=== PATIENT | female | born 1995 | race Caucasian/White ===

== ENCOUNTER 2018-05-31 22:54 | Emergency (ER) | payer OTHER, SELFPAY ==
--- NOTE | 2018-06-01 00:55 | EDPHYS ---
Physician Documentation [facility] Name: Natali Velasco Age: 23 yrs Sex: Female : 1995 Arrival Date: 05/31/2018 Time: 22:58 Bed 19 Private MD: ED Physician Salo Hagan HPI: 06/01 00:40 This 23 yrs old Female presents to ER via Ambulatory with complaints of Flu cp Symptoms. 00:40 The patient or guardian reports cough, that is intermittent, flu symptoms, arthralgias, cp low-grade fever. 00:40 Onset: The symptoms/episode began/occurred this morning. Severity of symptoms: in the cp emergency department the symptoms are unchanged. Associated signs and symptoms: Pertinent positives: sore throat, headache, body aches, Pertinent negatives: diarrhea, vomiting. 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 Patient has never been vaccinated. - Social history:: Smoking status: Patient uses tobacco products, smokes one-half pack cigarettes per day. - Ebola Screening: : No symptoms or risks identified at this time. ROS: 06/01 00:45 Constitutional: Positive for body aches, Negative for fever, poor PO intake. cp 00:45 Eyes: Negative for injury, pain, redness, and discharge. cp 00:45 ENT: Positive for sore throat, Negative for drainage from ear(s), ear pain, difficulty swallowing, difficulty handling secretions. 00:45 Neck: Positive for tenderness. 00:45 Respiratory: Positive for cough, Negative for shortness of breath, wheezing. 00:45 Abdomen/GI: Negative for abdominal pain, nausea, vomiting, and diarrhea. 00:45 Back: Positive for pain at rest, Negative for injury or acute deformity, decreased range of motion. 00:45 : Negative for urinary symptoms. 00:45 Skin: Negative for cellulitis, rash. 00:45 Neuro: Positive for headache, Negative for altered mental status, weakness. 00:45 All other systems are negative. Exam: 00:48 Constitutional: The patient appears in no acute distress, alert, awake, non-toxic, well cp developed, well nourished. 00:48 Head/Face: Normocephalic, atraumatic. cp 00:48 Eyes: Periorbital structures: appear normal, Conjunctiva: normal, no exudate, no injection, Sclera: no appreciated abnormality, Lids and lashes: appear normal, bilaterally. 00:48 ENT: External ear(s): are unremarkable, Ear canal(s): are normal, clear, TM's: bulging, is not appreciated, bilaterally, dullness, bilaterally, erythema, is not appreciated, bilaterally, Nose: is normal, Mouth: Lips: moist, Oral mucosa: moist, Posterior pharynx: is normal, airway is patent, no erythema, no exudate, Voice: is normal. 00:48 Neck: ROM/movement: is normal, is supple, no range of motions limitations, no meningismus, no nuchal rigidity, Lymph nodes: no appreciated lymphadenopathy. 00:48 Chest/axilla: Inspection: normal, Palpation: is normal, no crepitus, no tenderness. 00:48 Cardiovascular: Rate: tachycardic, Rhythm: regular. 00:48 Respiratory: the patient does not display signs of respiratory distress, Respirations: normal, no use of accessory muscles, no retractions, no splinting, no tachypnea, Breath sounds: are clear throughout, no decreased breath sounds, no stridor, no wheezing. 00:48 Abdomen/GI: Inspection: abdomen appears normal, Palpation: abdomen is soft and non-tender, in all quadrants, rebound tenderness, is not appreciated, voluntary guarding, is not appreciated, involuntary guarding, is not appreciated. 00:48 Back: pain, that is mild, ROM is normal. 00:48 Skin: cellulitis, is not appreciated, no rash present. 00:48 Neuro: Orientation: to person, place \T\ time. Mentation: is normal, Cerebellar function: is grossly normal, Motor: moves all fours, strength is normal, Sensation: is normal. Vital Signs: 05/31 23:10 BP 104 / 79; Pulse 111; Resp 16; Temp 100.5(O); Pulse Ox 98% on R/A; Weight 79.38 kg; lp1 Height 5 ft. 3 in. (160.02 cm); 06/01 01:20 BP 113 / 63; Pulse 105; Resp 18; Temp 97.9; Pulse Ox 98% on R/A; rr5 05/31 23:10 Body Mass Index 31.00 (79.38 kg, 160.02 cm) lp1 MDM: 05/31 23:42 Patient medically screened. cp 06/01 00:00 Differential Diagnosis: Bronchitis Influenza Upper Respiratory Infection Otitis Media cp Pneumonia Other strep throat. 00:51 Data reviewed: vital signs, nurses notes, lab test result(s). cp 00:51 Counseling: I had a detailed discussion with the patient and/or guardian regarding: the cp historical points, exam findings, and any diagnostic results supporting the discharge/admit diagnosis, lab results, to return to the emergency department if symptoms worsen or persist or if there are any questions or concerns that arise at home. 00:51 ED course: Discussed negative tests for influenza and strep, but will start patient on cp tamiflu due to symptoms and discharge to home for continued monitoring. 05/31 23:12 Order name: Flu lp1 05/31 23:12 Order name: Strep lp1 06/01 00:14 Order name: Throat Culture EDVT 06/01 00:36 Order name: Urine Dipstick-Ancillary (obtain specimen); Complete Time: 01:16 cp 06/01 00:36 Order name: Urine Test (obtain specimen); Complete Time: 01:16 cp Administered Medications: 01:00 Drug: Tylenol 1000 mg Route: PO; rr5 01:24 Follow up: Response: Medication administered at discharge. rr5 Disposition: 01:26 Co-signature as Attending Physician, Salo Hagan MD. pkl Disposition: 06/01/18 00:53 Discharged to Home. Impression: Influenza like illness. - Condition is Stable. - Discharge Instructions: Influenza, Adult. - Prescriptions for Ibuprofen 800 mg Oral Tablet - take 1 tablet by ORAL route every 8 hours As needed take with food; 30 tablet. Tamiflu 75 mg Oral Capsule - take 1 tablet by ORAL route every 12 hours for 5 days; 10 tablet. - Medication Reconciliation Form, Thank You Letter, Antibiotic Education, Prescription Opioid Use form. - Follow up: Private Physician; When: 1 - 2 days; Reason: Recheck today's complaints. - Problem is new. - Symptoms are unchanged. Signatures: Dispatcher [employer] EDVT Salo Hagan MD MD pkBetsy Oliveira RN RN lp1 Hardeep Singh PA PA cp Roque, Raymond, RN RN rr5 Corrections: (The following items were deleted from the chart) 01:14 00:36 UA MICROSCOPIC+U.LAB.BRZ ordered. EDVT EDVT 01:25 00:53 06/01/2018 00:53 Discharged to Home. Impression: Influenza like illness. rr5 Condition is Stable. Forms are Medication Reconciliation Form, Thank You Letter, Antibiotic Education, Prescription Opioid Use. Follow up: Private Physician; When: 1 - 2 days; Reason: Recheck today's complaints. Problem is new. Symptoms are unchanged. cp 21:25 00:00 Differential diagnosis: viral Infection, bacterial infection, URI, bronchitis, cp pneumonia UTI, meningitis, influenza cp
--- NOTE | 2018-06-01 00:55 | ER ---
Nurse's Notes [facility] Name: Natali Velasco Age: 23 yrs Sex: Female : 1995 Arrival Date: 05/31/2018 Time: 22:58 Bed 19 Private MD: Diagnosis: Influenza like illness Presentation: 05/31 23:11 Presenting complaint: Patient states: Woke up today running fever at home, cough, sore lp1 throat, generalized pain and aches to body; Took 3 tabs of 500mg Tylenol about 2 hours ago. Transition of care: patient was not received from another setting of care. Onset of symptoms was May 31, 2018. Risk Assessment: Do you want to hurt yourself or someone else? Patient reports no desire to harm self or others. Initial Sepsis Screen: Does the patient meet any 2 criteria? No. Patient's initial sepsis screen is negative. Does the patient have a suspected source of infection? No. Patient's initial sepsis screen is negative. Care prior to arrival: None. 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 Patient has never been vaccinated. - Social history:: Smoking status: Patient uses tobacco products, smokes one-half pack cigarettes per day. - Ebola Screening: : No symptoms or risks identified at this time. Screenin:11 Abuse screen: Denies threats or abuse. Denies injuries from another. Nutritional lp1 screening: No deficits noted. Tuberculosis screening: No symptoms or risk factors identified. Fall Risk None identified. Assessment: 23:15 General: Appears in no apparent distress. uncomfortable, Behavior is calm, cooperative, rr5 appropriate for age. Pain: Complains of pain in throat Pain does not radiate. Quality of pain is described as aching, Pain began gradually, Is intermittent. Neuro: Level of Consciousness is awake, alert, obeys commands, Oriented to person, place, time, situation. 23:15 Cardiovascular: Capillary refill < 3 seconds Patient's skin is warm and dry. rr5 Respiratory: Airway is patent Respiratory effort is even, unlabored, Respiratory pattern is regular, symmetrical. GI: No signs and/or symptoms were reported involving the gastrointestinal system. : No signs and/or symptoms were reported regarding the genitourinary system. EENT: Reports throat pain. Derm: Skin is intact, Skin temperature is warm. Musculoskeletal: Capillary refill < 3 seconds, Range of motion: intact in all extremities, Reports pain in body. 06/01 00:30 Reassessment: Patient appears in no apparent distress at this time. Patient and/or rr5 family updated on plan of care and expected duration. Pain level reassessed. awaiting for report. 01:24 Reassessment: Patient appears in no apparent distress at this time. Patient and/or rr5 family updated on plan of care and expected duration. Pain level reassessed. discharge instruction given and explained without complaints made. Patient states feeling better. Patient states symptoms have improved. Vital Signs: 05/31 23:10 BP 104 / 79; Pulse 111; Resp 16; Temp 100.5(O); Pulse Ox 98% on R/A; Weight 79.38 kg; lp1 Height 5 ft. 3 in. (160.02 cm); 06/01 01:20 BP 113 / 63; Pulse 105; Resp 18; Temp 97.9; Pulse Ox 98% on R/A; rr5 05/31 23:10 Body Mass Index 31.00 (79.38 kg, 160.02 cm) lp1 ED Course: 05/31 22:58 Patient arrived in ED. mr 23:10 Arm band placed on right wrist. lp1 23:11 Triage completed. lp1 23:15 Patient has correct armband on for positive identification. Bed in low position. Call rr5 light in reach. Side rails up X 1. Pulse ox on. NIBP on. 23:15 Flu and/or RSV swab sent to lab. Strep swab sent to lab. lp1 23:42 Hardeep Singh PA is PHCP. cp 23:42 Salo Hagan MD is Attending Physician. cp 06/01 00:35 Mateo Sweeney RN is Primary Nurse. rr5 01:24 No provider procedures requiring assistance completed. Patient did not have IV access rr5 during this emergency room visit. Administered Medications: 01:00 Drug: Tylenol 1000 mg Route: PO; rr5 01:24 Follow up: Response: Medication administered at discharge. rr5 Outcome: 00:53 Discharge ordered by . cp 01:24 Discharged to home ambulatory, with family. rr5 01:24 Condition: stable 01:24 Discharge instructions given to patient, family, Instructed on discharge instructions, follow up and referral plans. medication usage, Demonstrated understanding of instructions, follow-up care, medications, Prescriptions given X 2. 01:25 Patient left the ED. rr5 Signatures: Kinga Marquez mr RaiBetsy RN RN lp1 Hardeep Singh PA PA Mateo Cruz RN RN rr5 Corrections: (The following items were deleted from the chart) 05/31 23:12 23:11 Presenting complaint: Patient states: Woke up today running fever at home, cough, lp1 sore throat, generalized pain and aches to body lp1
[2018-06-01] MEDS ORDERED: ACETAMINOPHEN 500 MG TAB ONE (01:20)
== END 2018-06-01 01:25 | disposition home or self-care (01) ==
LOC: ER 22:54
DX: J11.1 Influenza due to unidentified influenza virus with other respiratory manifestations (principal); F17.210 Nicotine dependence, cigarettes, uncomplicated
CPT/HCPCS: 87070; 87081; 87804; 99284

== ENCOUNTER 2019-11-19 22:22 | Emergency (ER) | payer SELFPAY ==
--- OUTSIDE RECORDS SUMMARY | 2019-11-19 22:32 | XMS REPORT | Continuity of Care Document ---
:1995 Author Organization [facility] t Address [address] [place] [address] Care Team Providers Name Role Phone Ernestina Patiño Attending Clinician Unavailable Francia MORATAYA Attending Clinician Eva Attending Clinician Unavailable Doctor Unassigned, Name Attending Clinician Unavailable Problems This patient has no known problems. Allergies, Adverse Reactions, Alerts This patient has no known allergies or adverse reactions. Medications This patient has no known medications. Procedures This patient has no known procedures. 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 Busser Kaylyn, [facility] [id number] 12:59:15 13:59:15 Visit Ramonita Colin [id number] [place] [id number] [facility] [phone] [address] 2019-01-11 2019-01-11 Routine Francia [facility] [id number] 09:22:18 09:47:30 Chester Colin [id number] Visit Faiza [id number] Zoë [phone] [address] 2019-01-08 2019-01-08 Telephone Francia KYVICK [id number] 00:00:00 00:00:00 Chester Colin [id number] [place] [id number] [facility] [phone] [facility] [address] 2018-12-28 2018-12-28 Office LAI Velasquez [id number] 12:11:23 12:38:16 Visit Lashaun [facility] [id number] [facility] [id number] MATERNAL [phone] & CHILD [address] [place] [address] 2018-12-18 2018-12-18 Patient Doctor ANTHONY [id number] 00:00:00 00:00:00 Secure Msg Unassigned, PATO [id number] [place] [facility] [phone] [id number] Results This patient has no known results.
[2019-11-19 23:46] LABS: Urine Blood NEGATIVE (NEG); Urine Glucose NEGATIVE (NEG); Urine Protein NEGATIVE (NEG); Urine Specific Gravity 1.025 (1.005-1.030); Urine pH 7.5 (5.0-7.0)
[2019-11-19] MEDS ORDERED: methocarbamoL 500 MG TAB ONE (23:57)
[2019-11-19] MEDS ORDERED: KETOROLAC 30 MG/ML INJ ONE (23:58)
[2019-11-20 00:01] LABS: Urine Bacteria 20-50 /HPF (<20); Urine Culture Reflex Order REFLEXED; Urine RBC NONE SEEN /HPF (NONE SEEN)
--- NOTE | 2019-11-20 00:10 | EDPHYS ---
Physician Documentation [facility] Name: Natali Velasco Age: 24 yrs Sex: Female : 1995 Arrival Date: 11/19/2019 Time: 22:38 Bed X-Ray Private MD: ED Physician Hector Graham HPI: 11/18 23:36 This 24 yrs old Female presents to ER via Ambulatory with complaints of Lower jr8 Back Pain. 23:36 The patient presents with pain that is acute, with no known mechanism of injury. The jr8 symptoms are located in the low back. The pain does not radiate. The problem was sustained from unknown cause. Onset: The symptoms/episode began/occurred acutely, today. Modifying factors: The patient symptoms are alleviated by nothing, the patient symptoms are aggravated by any movement. Associated signs and symptoms: The patient has no apparent associated signs or symptoms. Severity of symptoms: At their worst the symptoms were moderate, in the emergency department the symptoms are unchanged. The patient has experienced a previous episode. The patient has not recently seen a physician. Patient stated that she has had mild back pain in past. Today has been severe. Denies trauma or heavy lifting. Denies any other symptoms . [employer]: 11/19 00:49 LMP N/A - control method ao Historical: - Allergies: 11/18 22:53 No Known Allergies; sg - PMHx: 22:53 NF-1; sg - PSHx: 22:53 None; sg - Immunization history:: Adult Immunizations up to date. - Social history:: Smoking status: Patient reports the use of cigarette tobacco products. ROS: 23:36 Eyes: Negative for injury, pain, redness, and discharge, ENT: Negative for injury, jr8 pain, and discharge, Neck: Negative for injury, pain, and swelling, Cardiovascular: Negative for chest pain, palpitations, and edema, Respiratory: Negative for shortness of breath, cough, wheezing, and pleuritic chest pain, Abdomen/GI: Negative for abdominal pain, nausea, vomiting, diarrhea, and constipation, MS/Extremity: Negative for injury and deformity, Skin: Negative for injury, rash, and discoloration, Neuro: Negative for headache, weakness, numbness, tingling, and seizure. 23:36 Back: Positive for decreased range of motion, pain at rest, pain with movement, Negative for radiated pain. Exam: 23:36 Eyes: Pupils equal round and reactive to light, extra-ocular motions intact. Lids and jr8 lashes normal. Conjunctiva and sclera are non-icteric and not injected. Cornea within normal limits. Periorbital areas with no swelling, redness, or edema. ENT: Nares patent. No nasal discharge, no septal abnormalities noted. Tympanic membranes are normal and external auditory canals are clear. Oropharynx with no redness, swelling, or masses, exudates, or evidence of obstruction, uvula midline. Mucous membranes moist. Neck: Trachea midline, no thyromegaly or masses palpated, and no cervical lymphadenopathy. Supple, full range of motion without nuchal rigidity, or vertebral point tenderness. No Meningismus. Cardiovascular: Regular rate and rhythm with a normal S1 and S2. No gallops, murmurs, or rubs. Normal PMI, no JVD. No pulse deficits. Respiratory: Lungs have equal breath sounds bilaterally, clear to auscultation and percussion. No rales, rhonchi or wheezes noted. No increased work of breathing, no retractions or nasal flaring. Abdomen/GI: Soft, non-tender, with normal bowel sounds. No distension or tympany. No guarding or rebound. No evidence of tenderness throughout. Skin: Warm, dry with normal turgor. Normal color with no rashes, no lesions, and no evidence of cellulitis. MS/ Extremity: Pulses equal, no cyanosis. Neurovascular intact. Full, normal range of motion. Neuro: Awake and alert, GCS 15, oriented to person, place, time, and situation. Cranial nerves II-XII grossly intact. Motor strength 5/5 in all extremities. Sensory grossly intact. Cerebellar exam normal. Normal gait. 23:36 Back: pain, that is moderate, of the left low back and right low back, ROM is painful, normal spinal alignment noted, CVA tenderness, is absent, muscle spasm, is not present, Straight leg raises: pain bilaterally. Vital Signs: 22:41 BP 132 / 80; Pulse 87; Resp 18; Pulse Ox 100% on R/A; sg 11/19 00:50 BP 135 / 75; Pulse 80; Resp 16; Temp 98.6; Pulse Ox 100% on R/A; Pain 0/10; ao MDM: 06/26 22:52 Patient medically screened. [facility] 23:36 Data reviewed: vital signs, nurses notes, radiologic studies, plain films, and as a jr result, I will discharge patient. Data interpreted: Pulse oximetry: on room air is 100 %. Interpretation: normal. Counseling: I had a detailed discussion with the patient and/or guardian regarding: the historical points, exam findings, and any diagnostic results supporting the discharge/admit diagnosis, radiology results, the need for outpatient follow up, a family practitioner, to return to the emergency department if symptoms worsen or persist or if there are any questions or concerns that arise at home. Response to treatment: the patient's symptoms have markedly improved after treatment. 11/18 22:52 Order name: Urine Microscopic Only; Complete Time: 00:08 [facility] 11/18 23:45 Order name: Urine Dipstick--Ancillary (enter results); Complete Time: 23:48 tt3 11/18 23:18 Order name: XRAY Lumbar Spine (3 Views) [facility] 11/19 00:03 Order name: Urine Culture [facility] 11/18 22:52 Order name: Urine Test (obtain specimen); Complete Time: 23:54 [facility] 11/18 22:52 Order name: Urine Dipstick-Ancillary (obtain specimen); Complete Time: 23:54 [facility] Administered Medications: 11/19 00:22 Drug: TORadol 30 mg Route: IM; Site: right deltoid; ao 00:30 Follow up: Response: No adverse reaction ao 00:22 Drug: Robaxin 750 mg Route: PO; ao 00:22 Follow up: Response: No adverse reaction ao 00:30 Follow up: Response: No adverse reaction ao Disposition: 05:42 Co-signature as Attending Physician, Hector Graham MD. [email or web address] Disposition: 11/20/19 00:10 Discharged to Home. Impression: Low back pain, Urinary tract infection, site not specified. - Condition is Stable. - Discharge Instructions: Back Pain, Adult, Musculoskeletal Pain, Heat Therapy. - Prescriptions for Ibuprofen 800 mg Oral Tablet - take 1 tablet by ORAL route every 12 hours As needed take with food; 20 tablet. Zanaflex 4 mg Oral Tablet - take 1 tablet by ORAL route every 8 hours As needed; 20 tablet. Macrobid 100 mg Oral Capsule - take 1 capsule by ORAL route every 12 hours for 7 days; 14 capsule. - Medication Reconciliation Form, Thank You Letter, Antibiotic Education, Prescription Opioid Use form. - Follow up: Private Physician; When: 2 - 3 days; Reason: Recheck today's complaints, Continuance of care, Re-evaluation by your physician. - Problem is new. - Symptoms have improved. Signatures: Dispatcher [employer] EDMS Thom Stack RN RN Javy David PA PA jr8 Rian Olmedo RN RN ao Holmes, Maurice, MD MD [email or web address] Corrections: (The following items were deleted from the chart) 00:10 00:10 11/20/2019 00:10 Discharged to Home. Impression: Low back pain. Condition is jr8 Stable. Forms are Medication Reconciliation Form, Thank You Letter, Antibiotic Education, Prescription Opioid Use. Follow up: Private Physician; When: 2 - 3 days; Reason: Recheck today's complaints, Continuance of care, Re-evaluation by your physician. Problem is new. Symptoms have improved. jr8 00:50 00:10 11/20/2019 00:10 Discharged to Home. Impression: Low back pain; Urinary tract ao infection, site not specified. Condition is Stable. Forms are Medication Reconciliation Form, Thank You Letter, Antibiotic Education, Prescription Opioid Use. Follow up: Private Physician; When: 2 - 3 days; Reason: Recheck today's complaints, Continuance of care, Re-evaluation by your physician. Problem is new. Symptoms have improved. jr8
--- NOTE | 2019-11-20 00:10 | ER ---
Nurse's Notes [facility] Name: Natali Velasco Age: 24 yrs Sex: Female : 1995 Arrival Date: 11/19/2019 Time: 22:38 Bed X-Ray Private MD: Diagnosis: Low back pain;Urinary tract infection, site not specified Presentation: 11/18 22:41 Acuity: LEELEE 4 sg 22:41 Chief complaint: Patient states: Back pain x1 month, denies urinary symptoms, reports sg having the pain worsening this evening, unsure if maybe moved incorrectly making the pain worsen, states having lower back pain that is relieved with laying side lying position and having a leg laid over the other leg. Coronavirus screen: Proceed with normal triage. Ebola Screen: Patient negative for fever greater than or equal to 101.5 degrees Fahrenheit, and additional compatible Ebola Virus Disease symptoms Patient denies exposure to infectious person. Patient denies travel to an Ebola-affected area in the 21 days before illness onset. No symptoms or risks identified at this time. Initial Sepsis Screen: Does the patient meet any 2 criteria? No. Patient's initial sepsis screen is negative. Does the patient have a suspected source of infection? No. Patient's initial sepsis screen is negative. Risk Assessment: Do you want to hurt yourself or someone else? Patient reports no desire to harm self or others. Onset of symptoms was November 19, 2019. Care prior to arrival: None. 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 - Social history:: Smoking status: Patient reports the use of cigarette tobacco products. Screenin:57 Abuse screen: Denies threats or abuse. Denies injuries from another. Nutritional ao screening: No deficits noted. Tuberculosis screening: No symptoms or risk factors identified. Fall Risk None identified. Assessment: 23:30 General: Appears in no apparent distress. comfortable, Behavior is calm, cooperative, ao appropriate for age. Pain: Complains of pain in right low back and left low back Pain does not radiate. Pain currently is 8 out of 10 on a pain scale. Neuro: Level of Consciousness is awake, alert, obeys commands, Oriented to person, place, time, situation, Appropriate for age Moves all extremities. Full function Speech is normal, Facial symmetry appears normal. Cardiovascular: Capillary refill < 3 seconds Patient's skin is warm and dry. Respiratory: Airway is patent Respiratory effort is even, unlabored, Respiratory pattern is regular, symmetrical. GI: Abdomen is non-distended. : Urine is clear. EENT: No signs and/or symptoms were reported regarding the EENT system. Derm: Skin is intact, Skin is pink, warm \T\ dry. normal, Skin temperature is warm. Musculoskeletal: Circulation, motion, and sensation intact. Range of motion: intact in all extremities. 11/19 00:49 Reassessment: DC instructions given to patient. Paitent agree with POC and to follow up ao with PCP. No questions at this time. Vital Signs: 11/18 22:41 BP 132 / 80; Pulse 87; Resp 18; Pulse Ox 100% on R/A; sg 11/19 00:50 BP 135 / 75; Pulse 80; Resp 16; Temp 98.6; Pulse Ox 100% on R/A; Pain 0/10; ao ED Course: 11/18 22:38 Patient arrived in ED. ds1 22:41 Triage completed. sg 22:41 Arm band placed on. sg 22:52 Javy Duque PA is PHCP. jr8 22:52 Hector Graham MD is Attending Physician. jr8 22:53 Rian Olmedo, JUSTUS is Primary Nurse. ao 23:57 Patient has correct armband on for positive identification. Pulse ox on. NIBP on. ao 11/19 00:09 XRAY Lumbar Spine (3 Views) In Process Unspecified. EDMS 00:48 No provider procedures requiring assistance completed. Patient did not have IV access ao during this emergency room visit. Administered Medications: 00:22 Drug: TORadol 30 mg Route: IM; Site: right deltoid; ao 00:30 Follow up: Response: No adverse reaction ao 00:22 Drug: Robaxin 750 mg Route: PO; ao 00:22 Follow up: Response: No adverse reaction ao 00:30 Follow up: Response: No adverse reaction ao Outcome: 00:10 Discharge ordered by MD. daniels 00:49 Discharged to home ambulatory. ao 00:49 Condition: stable 00:49 Discharge instructions given to patient, Instructed on discharge instructions, follow up and referral plans. Demonstrated understanding of instructions, follow-up care, medications, Prescriptions given X 3. 00:50 Patient left the ED. ao Signatures: Dispatcher [employer] EDMS Thom Stack RN RN Cat Henry ds1 Javy Duque PA PA jr8 Ortiz, Alex RN RN ao
[2019-11-20 02:19] VITALS: O2SAT 100
[2019-11-20 02:23] VITALS: BP 135/75; TEMP 98.6
--- NOTE | 2019-11-20 11:03 | RAD REPORT ---
EXAM DESCRIPTION: RAD - Lumbar Spine 3 Views - 11/20/2019 12:10 am CLINICAL HISTORY: PAIN Radiculopathy COMPARISON: No comparisons FINDINGS: Vertebral body heights appear maintained. No compression fracture noted. Mild disc thinnin g with small posterior osteophytes L5-S1. No spondylolysis or spondylolisthesis. IMPRESSION: Mild spondylosis L5-S1.
== END 2019-11-20 00:50 | disposition home or self-care (01) ==
LOC: ER 22:22
DX: N39.0 Urinary tract infection, site not specified (principal); Z72.0 Tobacco use
CPT/HCPCS: 72100; 81003; 81015; 87086; 87088; 96372; 99284

== ENCOUNTER 2021-06-08 04:20 | Emergency (ER) | payer SELFPAY ==
--- OUTSIDE RECORDS SUMMARY | 2021-06-08 04:24 | XMS REPORT | Continuity of Care Document ---
:1995 Author Organization [facility] t Address [address] [place] [address] Care Team Providers Name Role Phone Pcp, Does Not Have A Primary Care Physician Akinsipe WHFAVIOLAP C Attending Clinician Ultrasound, Mfm Attending Clinician Unavailable Francia MORATAYA Attending Clinician Eva Attending Clinician Unavailable Doctor Unassigned, Name Attending Clinician Unavailable Payers Payer Name Policy Type Policy Number Effective Date Expiration Date S ource Problems Condition Condition Condition Status Onset Resolution Last Treating Co mments Source Name Details Category Date Date Treatment Clinician Date Gonorrhea Gonorrhea Disease Active Uni vers 01-24 ity of 00:00: [place] 00 [facility] Chlamydia Chlamydia Disease Active Uni vers trachomati trachomati 01-24 it y of s s 00:00: [place] infection infection 00 Medi ayush of lower of lower Branch genitourin genitourin sonam sites sonam sites Tobacco Tobacco Disease Active Univers use use 8- ity of 00:00: [address] BMI BMI Disease Active 2017-05 Univers 30.0-30.9, 30.0-30.9, 1-02 it y of adult adult 00:00: [address] Allergies, Adverse Reactions, Alerts This patient has no known allergies or adverse reactions. Social History Social Habit Start Date Stop Date Quantity Comments Source History of tobacco Cigarette Smoker University of use [facility] Exposure to Not sure [facility] SARS-CoV-2 (event) [facility] Alcohol intake 2021-06-05 2021-06-05 Current University of 00:00:00 00:00:00 non-drinker of [place] [facility] alcohol Branch (finding) Tobacco use and 2021-01-23 2021[facility]01-23 [facility] Cigarettes smoked 2021-01-23 2021-01-23 Univers ity of current (pack per 00:00:00 00:00:00 ) - Reported Branch Sex Assigned At [birth year] Universit y of 00:00:00 00:00:00 [facility] Smoking Status Start Date Stop Date Source Current every day smoker 2021-01-23 00:00:00 Uni versity of [facility] Medications Ordered Filled Start Stop Current Ordering Indication Dosage Frequency Signature Comments Components Source Medication Medication Date Date Medication? Clinician (SIG) Name Name yanira 2021- Yes [id number] 1000mg Take 2 Univers n 500 mg 06-07 tablets by ity of tablet 00:00: 05:59 [place] now for 1 Medical dose. Branch metroNIDAZO 2021- Yes [id number] 2000mg Take 4 Univers LE 500 mg 06-07 tablets by ity of tablet 00:00: 05:59 [place] now for 1 Medical dose. Branch Procedures This patient has no known procedures. 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 Ultrasound, [facility] [id number] 12:59:15 13:59:15 Visit Ramonita Ernestina Colin [id number] [place] [id number] Professio [phone] [address] 2019-01-11 2019-01-11 Routine [facility], [facility] [id number] 09:22:18 09:47:30 Chester Colin [id number] Visit [place] [id number] Professio [id number] [address] 2019-01-08 2019-01-08 [facility] [id number] 00:00:00 00:00:00 Chester Colin [id number] [place] [id number] Professio [id number] [address] 2018-12-28 2018-12-28 Office Eva [facility] [id number] 12:11:23 12:38:16 Visit Lashaun [employer] [id number] [facility] [id number] MATERNAL [id number] & CHILD 107 [facility] 2018-12-18 2018-12-18 Patient Doctor ANTHONY [id number] 00:00:00 00:00:00 Secure Msg Unassigned, PATO [id number] [place] [facility] [id number] [id number] Results This patient has no known results.
[2021-06-08] MEDS ORDERED: CEFTRIAXONE 1000 MG/VIAL ONE (05:10)
[2021-06-08] MEDS ORDERED: LIDOCAINE 1% MPF 2 ML AMPULE ONE (05:10)
[2021-06-08] MEDS ORDERED: HYDROCODONE/APAP 10/325 TAB ONE (05:10)
[2021-06-08] MEDS ORDERED: IBUPROFEN 200 MG TAB PO ONE (05:10)
[2021-06-08] MEDS ORDERED: IBUPROFEN 400 MG TAB ONE (05:10)
--- NOTE | 2021-06-08 05:45 | EDPHYS ---
Physician Documentation [facility] Name: Natali Velasco Age: 26 yrs Sex: Female : 1995 Arrival Date: 06/08/2021 Time: 04:24 Bed 22 Private MD: ED Physician Hardeep Lomas HPI: 06/08 05:40 This 26 yrs old Female presents to ER via Ambulatory with complaints of Ear jasmina Pain. 05:40 The patient presents with pain, swelling, tenderness. The complaints affect the right jasmina ear. Onset: The symptoms/episode began/occurred 2 day(s) ago. Modifying factors: The symptoms are alleviated by nothing, the symptoms are aggravated by nothing. Associated signs and symptoms: The patient has no apparent associated signs or symptoms. Severity of symptoms: At their worst the symptoms were moderate in the emergency department the symptoms are unchanged. The patient has not experienced similar symptoms in the past. 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 - Social history:: Smoking status: Patient reports the use of cigarette tobacco products, smokes one-half pack cigarettes per day, Patient/guardian denies using alcohol. ROS: 05:41 Constitutional: Negative for fever, chills, and weight loss, Eyes: Negative for injury, jasmina pain, redness, and discharge, Neck: Negative for injury, pain, and swelling, Cardiovascular: Negative for chest pain, palpitations, and edema, Respiratory: Negative for shortness of breath, cough, wheezing, and pleuritic chest pain, Abdomen/GI: Negative for abdominal pain, nausea, vomiting, diarrhea, and constipation, Back: Negative for injury and pain, : Negative for injury, bleeding, discharge, and swelling, MS/Extremity: Negative for injury and deformity, Skin: Negative for injury, rash, and discoloration, Neuro: Negative for headache, weakness, numbness, tingling, and seizure, Psych: Negative for depression, anxiety, suicide ideation, homicidal ideation, and hallucinations, Allergy/Immunology: Negative for hives, rash, and allergies, Endocrine: Negative for neck swelling, polydipsia, polyuria, polyphagia, and marked weight changes, Hematologic/Lymphatic: Negative for swollen nodes, abnormal bleeding, and unusual bruising. 05:41 ENT: Positive for ear pain. Exam: 05:41 Constitutional: This is a well developed, well nourished patient who is awake, alert, jasmina and in no acute distress. Head/Face: Normocephalic, atraumatic. Eyes: Pupils equal round and reactive to light, extra-ocular motions intact. Lids and lashes normal. Conjunctiva and sclera are non-icteric and not injected. Cornea within normal limits. Periorbital areas with no swelling, redness, or edema. Neck: Trachea midline, no thyromegaly or masses palpated, and no cervical lymphadenopathy. Supple, full range of motion without nuchal rigidity, or vertebral point tenderness. No Meningismus. Chest/axilla: Normal chest wall appearance and motion. Nontender with no deformity. No lesions are appreciated. Cardiovascular: Regular rate and rhythm with a normal S1 and S2. No gallops, murmurs, or rubs. Normal PMI, no JVD. No pulse deficits. Respiratory: Lungs have equal breath sounds bilaterally, clear to auscultation and percussion. No rales, rhonchi or wheezes noted. No increased work of breathing, no retractions or nasal flaring. Abdomen/GI: Soft, non-tender, with normal bowel sounds. No distension or tympany. No guarding or rebound. No evidence of tenderness throughout. Back: No spinal tenderness. No costovertebral tenderness. Full range of motion. Skin: Warm, dry with normal turgor. Normal color with no rashes, no lesions, and no evidence of cellulitis. MS/ Extremity: Pulses equal, no cyanosis. Neurovascular intact. Full, normal range of motion. Neuro: Awake and alert, GCS 15, oriented to person, place, time, and situation. Cranial nerves II-XII grossly intact. Motor strength 5/5 in all extremities. Sensory grossly intact. Cerebellar exam normal. Normal gait. Psych: Awake, alert, with orientation to person, place and time. Behavior, mood, and affect are within normal limits. 05:41 ENT: External ear(s): are unremarkable, Ear canal(s): are normal, TM's: erythema, that is moderate, on the right, Mouth: is normal, no acute changes, Lips: normal, moist, Oral mucosa: normal, pink and intact, Posterior pharynx: Airway: normal, no evidence of obstruction, Tonsils: are normal in appearance, Uvula: normal, midline. Vital Signs: 04:48 BP 125 / 103; Pulse 70; Resp 20; Temp 97.5(T); Pulse Ox 99% ; Weight 75.75 kg; Height 5 sf1 ft. 2 in. (157.48 cm); Pain 10/10; 05:59 Pain 6/10; tw5 04:48 Body Mass Index 30.54 (75.75 kg, 157.48 cm) sf1 MDM: 04:56 Patient medically screened. jasmina 05:43 Differential diagnosis: otitis media, otitis externa, ruptured TM, foreign body, acute jasmina otalgia. Data reviewed: vital signs, nurses notes. Data interpreted: Pulse oximetry: on room air is 99 %. Counseling: I had a detailed discussion with the patient and/or guardian regarding: the historical points, exam findings, and any diagnostic results supporting the discharge/admit diagnosis, lab results, radiology results. Administered Medications: 05:21 Drug: [place] (HYDROcodone-acetaminophen) 10 mg-325 mg 1 tabs Route: PO; tw5 05:59 Follow up: Pain 6/10 Adult; Response: No adverse reaction; Pain is decreased; RASS: tw5 Alert and Calm (0) 05:21 Drug: Rocephin (cefTRIAXone) 1 grams Route: IM; Site: left deltoid; tw5 05:59 Follow up: Response: No adverse reaction tw5 05:21 Drug: Motrin (ibuprofen) 600 mg Route: PO; tw5 05:59 Follow up: Response: No adverse reaction tw5 05:55 Drug: Augmentin (Amoxicillin-Clavulanate) 875 mg Route: PO; tw5 05:58 Follow up: Response: Medication administered at discharge. tw5 Disposition Summary: 06/08/21 05:44 Discharge Ordered Location: Home jasmina Problem: new jasmina Symptoms: have improved jasmina Condition: Stable jasmina Diagnosis - Acute serous otitis media, right ear jasmina Followup: jasmina - With: Private Physician - When: 2 - 3 days - Reason: Recheck today's complaints, Continuance of care, Re-evaluation by your physician Followup: jasmina - With: Janette Gonzalez MD - When: 2 - 3 days - Reason: Recheck today's complaints, Continuance of care, Re-evaluation by your physician Discharge Instructions: - Discharge Summary Sheet jasmina - Otitis Media, Adult jasmina - Otitis Media, Adult, [id number] Forms: - Medication Reconciliation Form jasmina - Thank You Letter jasmina - Antibiotic Education jasmina - Prescription Opioid Use [facility] Prescriptions: - Augmentin 875-125 mg Oral Tablet - take 1 tablet by ORAL route every 12 hours for 10 days; 20 tablet; Refills: 0, [facility] Product Selection Permitted - Elvie-D 12 Hour 60-120 mg Oral Tablet Sustained Release 12 hr - take 1 tablet by ORAL route every 12 hours As needed; 20 tablet; Refills: 0, [facility] Product Selection Permitted - Tylenol-Codeine #3 300 mg-30 mg Oral - take 2 tablet by ORAL route every 4-6 hours; 15 tablet; Refills: 0, Product [facility] Selection Permitted Signatures: Hardeep Lomas MD MD cha Wood, Tiffany tw5 Magdalena Bautista RN RN sf1 Corrections: (The following items were deleted from the chart) 04:51 04:50 PMHx: NF-1; sf1 sf1
--- NOTE | 2021-06-08 05:45 | ER ---
Nurse's Notes [facility] Name: Natali Velasco Age: 26 yrs Sex: Female : 1995 Arrival Date: 06/08/2021 Time: 04:24 Bed 22 Private MD: Diagnosis: Acute serous otitis media, right ear Presentation: 06/08 04:48 Chief complaint: Patient states: right side ear pain started 2 hours ago. Coronavirus sf1 screen: Vaccine status: Patient reports being unvaccinated. Client denies travel out of the [place] in the last 14 days. Ebola Screen: Patient negative for fever greater than or equal to 101.5 degrees Fahrenheit, and additional compatible Ebola Virus Disease symptoms Patient denies exposure to infectious person. Patient denies travel to an Ebola-affected area in the 21 days before illness onset. Initial Sepsis Screen: Does the patient meet any 2 criteria? No. Patient's initial sepsis screen is negative. Does the patient have a suspected source of infection? No. Patient's initial sepsis screen is negative. Risk Assessment: Do you want to hurt yourself or someone else? Patient reports no desire to harm self or others. Onset of symptoms was June 08, 2021 at 02:50. 04:48 Method Of Arrival: Ambulatory sf1 04:48 Acuity: LEELEE 4 sf1 Triage Assessment: 04:50 General: Appears uncomfortable, Behavior is calm, cooperative, appropriate for age. sf1 Pain: Complains of pain in right ear Pain currently is 10 out of 10 on a pain scale. EENT: No deficits noted. 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 - Social history:: Smoking status: Patient reports the use of cigarette tobacco products, smokes one-half pack cigarettes per day, Patient/guardian denies using alcohol. Screenin:52 Abuse screen: Denies threats or abuse. Nutritional screening: No deficits noted. sf1 Tuberculosis screening: No symptoms or risk factors identified. Fall Risk None identified. Assessment: 05:21 General: Appears uncomfortable, Behavior is calm, cooperative, appropriate for age, tw5 Reports " God this pain is terrible, 10/10 would not recommend". Pain: Complains of pain in right ear Pain currently is 10 out of 10 on a pain scale. Cardiovascular: No deficits noted. Respiratory: Airway is patent Trachea midline Respiratory effort is even, unlabored, Respiratory pattern is regular. GI: No deficits noted. 05:58 Reassessment: Patient states feeling better. tw5 Vital Signs: 04:48 BP 125 / 103; Pulse 70; Resp 20; Temp 97.5(T); Pulse Ox 99% ; Weight 75.75 kg; Height 5 sf1 ft. 2 in. (157.48 cm); Pain 10/10; 05:59 Pain 6/10; tw5 04:48 Body Mass Index 30.54 (75.75 kg, 157.48 cm) sf1 ED Course: 04:24 Patient arrived in ED. 2 04:50 Triage completed. sf1 04:52 Arm band placed on right wrist. sf1 04:56 Hardeep Lomas MD is Attending Physician. jasmina 05:07 Macy Sanchez is Primary Nurse. tw5 05:21 Patient has correct armband on for positive identification. tw5 05:44 Janette Gonzalez MD is Referral Physician. [facility] 05:59 No provider procedures requiring assistance completed. Patient did not have IV access tw5 during this emergency room visit. Administered Medications: 05:21 Drug: [place] (HYDROcodone-acetaminophen) 10 mg-325 mg 1 tabs Route: PO; tw5 05:59 Follow up: Pain 6/10 Adult; Response: No adverse reaction; Pain is decreased; RASS: tw5 Alert and Calm (0) 05:21 Drug: Rocephin (cefTRIAXone) 1 grams Route: IM; Site: left deltoid; tw5 05:59 Follow up: Response: No adverse reaction tw5 05:21 Drug: Motrin (ibuprofen) 600 mg Route: PO; tw5 05:59 Follow up: Response: No adverse reaction tw5 05:55 Drug: Augmentin (Amoxicillin-Clavulanate) 875 mg Route: PO; tw5 05:58 Follow up: Response: Medication administered at discharge. tw5 Outcome: 05:44 Discharge ordered by . jasmina 05:59 Discharged to home ambulatory. tw5 05:59 Condition: good 05:59 Discharge instructions given to patient, Instructed on discharge instructions, follow up and referral plans. medication usage, Demonstrated understanding of instructions, follow-up care, medications, Prescriptions given X 3. 06:00 Patient left the ED. tw5 Signatures: Hardeep Lomas MD MD cha Alexander, Jessica ja2 Wood, Tiffany tw5 Magdalena Bautista RN RN sf1 Corrections: (The following items were deleted from the chart) 04:51 04:50 PMHx: NF-1; sf1 sf1
[2021-06-08] MEDS ORDERED: AMOX/K CLAV 875 MG TAB ONE (05:56)
[2021-06-08 06:07] VITALS: BP 125/103; TEMP 97.5; O2SAT 99
== END 2021-06-08 06:00 | disposition home or self-care (01) ==
LOC: ER 04:20
DX: H65.01 Acute serous otitis media, right ear (principal); F17.210 Nicotine dependence, cigarettes, uncomplicated
CPT/HCPCS: 96372; 99283

== ENCOUNTER 2021-09-17 22:06 | Emergency (ER) | payer SELFPAY ==
--- OUTSIDE RECORDS SUMMARY | 2021-09-17 22:09 | XMS REPORT | Continuity of Care Document ---
:1995 Author Organization [facility] t Address [address] [place] [address] Care Team Providers Name Role Phone PCP, DOES NOT HAVE A Primary Care Physician Unavailable Luke SMITH Attending Clinician Unavailable Jan ACOSTA Attending Clinician Unavailable Visit, Nurse Attending Clinician Unavailable Luke Duarte Attending Clinician Ultrasound, Mfm Attending Clinician Unavailable Francia MORATAYA Attending Clinician Eva Attending Clinician Unavailable Doctor Unassigned, Name Attending Clinician Unavailable Payers Payer Name Policy Type Policy Number Effective Date Expiration Date S jessica [id number] 2020 00:00:00 Problems Condition Condition Condition Status Onset Resolution [...] Tobacco Tobacco Disease Active Univers use use 01-23 ity of 00:00: [place] 00 [facility] BMI BMI Disease Active 2017-05 Univers 30.0-30.9, 30.0-30.9, 1-02 it y of adult adult 00:00: [place] 00 [facility] Allergies, Adverse Reactions, Alerts Allergy Allergy Status Severity Reaction(s) Onset Inactive Treating Comm ents Source Name Type Date Date Clinician NO KNOWN Drug Active Univers ALLERGIE Class ity of S [facility] Social History Social Habit Start Date Stop Date Quantity Comments Source History of tobacco Cigarette Smoker University of use [facility] Exposure to Not sure [facility] SARS-CoV-2 (event) [facility] Alcohol intake 2021-06-08 2021-06-08 Current University of 00:00:00 00:00:00 non-drinker of [facility] alcohol Branch (finding) Tobacco use and 2021-01-23 2021-01-23 Never used Universit y of exposure 00:00:00 00:00:00 [facility] Cigarettes smoked 2021-01-23 2021-01-23 Univers ity of current (pack per 00:00:00 00:00:00 ) - Reported Branch Sex Assigned At [birth year] Universit y of 00:00:00 00:00:00 [facility] Smoking Status Start Date Stop Date Source Current every day smoker 2021-01-23 00:00:00 Uni versity of [facility] Medications Ordered Filled Start Stop Current Ordering Indication Dosage Frequency Signature Comments Components Source Medication Medication Date Date Medication? Clinician (SIG) Name Name cefTRIAXone 2021- No [id number] 500mg Univers (ROCEPHIN) 06-08 ity of injection 21:30: 20:27 [place] 500 mg 00 :00 [facility] cefTRIAXone 2021- No [id number] 500mg 500 mg, Univers (ROCEPHIN) 06-08 Intramuscu it y of injection 21:30: 20:27 [place] ONCE, [place] 500 mg 00 :00 1 dose, On Medical Fri Branch 06/08/21 at 1530, VINCENT
Re ason for Anti-Infec tive: Documented Infection< br>Documen cande Infection Site: Other
O ther site: genitourin sonam
Duration of Therapy: Other (see Comments) azithromyci 2021- No [id number] 1000mg Take 2 Univers n 500 mg 06-07 tablets by ity of tablet 00:00[place] 05:59 [place] now for 1 Medical dose. Branch metroNIDAZO 2021- No [id number] 2000mg Take 4 Univers LE 500 mg 06-07 tablets by ity of tablet 00:00: 05:59 [place] now for 1 Medical dose. Branch Vital Signs Vital Name Observation Time Observation Value Comments Source Systolic blood 2021-06-08 20:06:00 108 [facility]Hg[facility] 2021-06-08 20:06:00 74 mm[Hg] [facility] Heart rate 2021-06-08 20:06:00 93 /min [facility] Body temperature 2021-06-08 20:06:00 35.89 Maria Guadalupe [facility] Respiratory rate 2021-06-08 20:06:00 16 /min [facility] Body height 2021-06-08 20:06:00 160 cm [facility] Body weight 2021-06-08 20:06:00 76.34 kg [facility] BMI 2021-06-08 20:06:00 29.81 kg/m2 [facility] Procedures This patient has no known procedures. Encounters Start End Encounter Admission Attending Care Care Encounter Source Date/Time Date/Time Type Type Clinicians Facility Department ID 2022-01-24 2022-01-24 [id number] Univers 13:15:00 13:15:00 ARIANNA david o f [facility] 2021-09-06 2021-09-06 Outpatient R [facility] [id number] Univers 10:30:00 10:30:00 [id number] ity [facility] 2021-09-06 2021-09-06 Outpatient R [facility] [id number] Univers 10:30:00 10:30:00 TUNDE hawk ronna [facility] 2021-06-08 2021-06-08 Nurse Visit, MarcelaRmchp Nurse [facility] [id number] Univers 13:30:00 14:23:35 Visit Arianna Smith INSPECTOR OPTICAL INSTRUMENT [id number]. 10 ity [facility] [id number] Jerry as MATERNAL [id number] [facility] & [address] 2021-06-08 2021-06-08 Outpatient R LUIS [facility] [id number] Univers 13:30:00 13:30:00 ARIANNA hawk ronna [facility] 2021-06-08 2021-06-08 Outpatient R [facility] [id number] Univers 10:30:00 10:30:[id number] [facility] 2021-06-07 2021-06-07 Telephone Luis [facility] [id number] [facility] 00:00:00 00:00:00 Arianna Butler INSPECTOR OPTICAL INSTRUMENT [id number] ity [facility] [id number] Jerry as MATERNAL [phone] [address] 2019-01-15 2019-01-15 Floor Hand Ultrasound, [facility] [id number] 12:59:15 13:59:15 Visit Ramonita Colin [id number] [place] [id number] Professio [id number] [address] 2019-01-11 2019-01-11 Routine Francia, [facility] [id number] 09:22:18 09:47:30 Chester Colin [id number] Visit Faiza [id number] Professio [id number] [address] 2019-01-08 2019-01-08 Telephone Francia [facility] [id number] 00:00:00 00:00:00 Chester Colin [id number] [place] [id number] Zoë [id number] [facility] [address] 2018-12-28 2018-12-28 Office LAI Velasquez [id number] 12:11:23 12:38:16 Visit Lashaun INSPECTOR OPTICAL INSTRUMENT [id number] [facility] [id number] MATERNAL [id number] & CHILD [address] [place] [address] 2018-12-18 2018-12-18 Patient Doctor ANTHONY [id number] 00:00:00 00:00:00 Secure Msg Unassigned, PATO [id number] [place] [facility] [id number] Results This patient has no known results.
[2021-09-17] MEDS ORDERED: NA CHLORIDE 0.9% 1,000 ML ONE (22:59)
[2021-09-17 23:15] LABS: Urine Blood Trace-intact (Negative); Urine Glucose Negative (Negative); Urine Protein Negative (Negative); Urine Specific Gravity 1.025 (1.005-1.030)
[2021-09-17 23:23] LABS: Absolute Lymphocytes (CBC) 2.5 K/uL (0.7-4.9); Hematocrit 39.5 % (36.0-45.0); Lymphocytes % 28.3 % (15.3-44.8); MPV 8.7 fL (7.6-11.3); RBC Red Blood Cell Count 4.39 M/uL (3.86-4.86)
[2021-09-17 23:38] LABS: BUN Blood Urea Nitrogen 11 mg/dL (7-18); Bicarbonate 27 mmol/L (21-32); Glucose Level 104 mg/dL (74-106); HCG, Quantitative 32 mIU/mL (1-3); Potassium 3.7 mmol/L (3.5-5.1); Sodium Level 138 mmol/L (136-145)
[2021-09-17 23:41] LABS: Urine Specific Gravity/Preg 1.025 (1.005-1.030)
--- NOTE | 2021-09-17 23:41 | EDPHYS ---
Physician Documentation [facility] Name: Natali Velasco Age: 26 yrs Sex: Female : 1995 Arrival Date: 09/17/2021 Time: 22:09 Bed 5 Private MD: ED Physician Hardeep Lomas HPI: 09/17 22:37 This 26 yrs old Female presents to ER via Ambulatory with complaints of jasmina Vaginal Bleeding, + Preg <12wks, Abdominal Cramping. 22:37 The patient presents to the emergency department with vaginal bleeding, that is light. jasmina The estimated gestational age is 4 weeks. course: care: none. Previous pregnancies: in previous pregnancies patient has had vaginal delivery. The patient has not experienced similar symptoms in the past. 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 - Social history:: Smoking status: Patient reports the use of cigarette tobacco products, smokes one pack cigarettes per day. - Family history:: not pertinent. ROS: 22:37 Constitutional: Negative for fever, chills, and weight loss, Eyes: Negative for injury, jasmina pain, redness, and discharge, ENT: Negative for injury, pain, and discharge, Neck: Negative for injury, pain, and swelling, Cardiovascular: Negative for chest pain, palpitations, and edema, Respiratory: Negative for shortness of breath, cough, wheezing, and pleuritic chest pain, Back: Negative for injury and pain, : Negative for injury, bleeding, discharge, and swelling, MS/Extremity: Negative for injury and deformity, Skin: Negative for injury, rash, and discoloration, Neuro: Negative for headache, weakness, numbness, tingling, and seizure, Psych: Negative for depression, anxiety, suicide ideation, homicidal ideation, and hallucinations, Allergy/Immunology: Negative for hives, rash, and allergies, Endocrine: Negative for neck swelling, polydipsia, polyuria, polyphagia, and marked weight changes, Hematologic/Lymphatic: Negative for swollen nodes, abnormal bleeding, and unusual bruising. 22:37 Abdomen/GI: Positive for abdominal pain, of the right lower quadrant and left lower quadrant. Exam: 22:37 Constitutional: This is a well developed, well nourished patient who is awake, alert, jasmina and in no acute distress. Head/Face: Normocephalic, atraumatic. Eyes: Pupils equal round and reactive to light, extra-ocular motions intact. Lids and lashes normal. Conjunctiva and sclera are non-icteric and not injected. Cornea within normal limits. Periorbital areas with no swelling, redness, or edema. ENT: Nares patent. No nasal discharge, no septal abnormalities noted. Tympanic membranes are normal and external auditory canals are clear. Oropharynx with no redness, swelling, or masses, exudates, or evidence of obstruction, uvula midline. Mucous membranes moist. Neck: Trachea midline, no thyromegaly or masses palpated, and no cervical lymphadenopathy. Supple, full range of motion without nuchal rigidity, or vertebral point tenderness. No Meningismus. Chest/axilla: Normal chest wall appearance and motion. Nontender with no deformity. No lesions are appreciated. Cardiovascular: Regular rate and rhythm with a normal S1 and S2. No gallops, murmurs, or rubs. Normal PMI, no JVD. No pulse deficits. Respiratory: Lungs have equal breath sounds bilaterally, clear to auscultation and percussion. No rales, rhonchi or wheezes noted. No increased work of breathing, no retractions or nasal flaring. Back: No spinal tenderness. No costovertebral tenderness. Full range of motion. Skin: Warm, dry with normal turgor. Normal color with no rashes, no lesions, and no evidence of cellulitis. MS/ Extremity: Pulses equal, no cyanosis. Neurovascular intact. Full, normal range of motion. Neuro: Awake and alert, GCS 15, oriented to person, place, time, and situation. Cranial nerves II-XII grossly intact. Motor strength 5/5 in all extremities. Sensory grossly intact. Cerebellar exam normal. Normal gait. Psych: Awake, alert, with orientation to person, place and time. Behavior, mood, and affect are within normal limits. 22:37 Abdomen/GI: Inspection: abdomen appears normal, Bowel sounds: normal, Palpation: mild abdominal tenderness, in the suprapubic area, right lower quadrant and left lower quadrant. Vital Signs: 22:26 BP 129 / 92; Pulse 106; Resp 16; Temp 98.4(TE); Pulse Ox 100% on R/A; Weight 76.2 kg lp1 (R); Height 5 ft. 2 in. (157.48 cm); Pain 7/10; 23:55 BP 119 / 77; Pulse 99; Resp 20 S; Pulse Ox 100% on R/A; as6 22:26 Body Mass Index 30.73 (76.20 kg, 157.48 cm) lp1 MDM: 22:25 Patient medically screened. [facility] 22:57 Differential diagnosis: threatened Ab, complete Ab. Data reviewed: vital signs, nurses jasmina notes, lab test result(s), radiologic studies, ultrasound. Data interpreted: personnel monitor: not applicable for this patient encounter. rate is 106 beats/min, rhythm is regular, Pulse oximetry: on room air is 100 %. Test interpretation: by ED physician or midlevel provider:. Counseling: I had a detailed discussion with the patient and/or guardian regarding: the historical points, exam findings, and any diagnostic results supporting the discharge/admit diagnosis, lab results, radiology results. 09/17 22:12 Order name: Abo/rh Typing; Complete Time: 00:02 [facility] 09/17 22:12 Order name: Basic Metabolic Panel; Complete Time: 23:39 [facility] 09/17 22:12 Order name: CBC with Diff; Complete Time: 23:38 [facility] 09/17 22:12 Order name: Quantitative Hcg; Complete Time: 23:39 [facility] 09/17 23:15 Order name: Urine --Ancillary (enter results); Complete Time: 23:43 mw2 09/17 23:15 Order name: Urine Dipstick-Ancillary; Complete Time: 23:30 EDMS 09/17 22:12 Order name: IV Saline Lock; Complete Time: 23:21 [facility] 09/17 22:12 Order name: Labs collected and sent; Complete Time: 23:21 [facility] 09/17 22:12 Order name: NPO; Complete Time: 22:54 [facility] 09/17 22:12 Order name: Urine Dipstick-Ancillary (obtain specimen); Complete Time: 23:21 [facility] 09/17 22:12 Order name: Urine Test (obtain specimen); Complete Time: 23: jasmina 09/17 22:12 Order name: US Transvaginal Ob jasmina Administered Medications: 23:05 Drug: NS 0.9% 1000 ml Route: IV; Rate: 1 bolus; Site: right antecubital; as6 09/18 00:30 Follow up: Response: No adverse reaction; IV Status: Completed infusion; IV Intake: as6 1000ml Disposition Summary: 09/17/21 23:40 Discharge Ordered Location: Home jasmina Problem: new jasmina Symptoms: have improved jasmina Condition: Stable jasmina Diagnosis - Threatened jasmina - Less than 8 weeks gestation of jasmina Followup: jasmina - With: Private Physician - When: 2 - 3 days - Reason: Recheck today's complaints, Continuance of care, Re-evaluation by your physician Followup: jasmina - With: - When: 2 - 3 days - Reason: Recheck today's complaints, Continuance of care, Re-evaluation by your physician Discharge Instructions: - Discharge Summary Sheet jasmina - Threatened Miscarriage jasmina - Vaginal Bleeding During , First Trimester jasmina - Threatened Miscarriage, Vmdl-ac-[id number] jasmina - Vaginal Bleeding During , First Trimester, Iuge-mm-Cvmr jasmina Forms: - Medication Reconciliation Form jasmina - Thank You Letter jasmina - Antibiotic Education jasmina - Prescription Opioid Use jasmina Signatures: Dispatcher [employer] Hardeep Castano MD MD cha Pena, Laura, RN RN lp1 Shane Bassett RN RN as6
--- NOTE | 2021-09-17 23:41 | ER ---
Nurse's Notes [facility] Name: Natali Velasco Age: 26 yrs Sex: Female : 1995 Arrival Date: 09/17/2021 Time: 22:09 Bed 5 Private MD: Diagnosis: Threatened ;Less than 8 weeks gestation of Presentation: 09/17 22:26 Chief complaint: Patient states: Vaginal spotting that began this morning, reports home lp1 test positive; having low pelvic cramping and low back pain. Coronavirus screen: At this time, the client does not indicate any symptoms associated with coronavirus-19. Ebola Screen: No symptoms or risks identified at this time. Initial Sepsis Screen: Does the patient meet any 2 criteria? No. Patient's initial sepsis screen is negative. Does the patient have a suspected source of infection? No. Patient's initial sepsis screen is negative. Risk Assessment: Do you want to hurt yourself or someone else? Patient reports no desire to harm self or others. Onset of symptoms was September 17, 2021. 22:26 Method Of Arrival: Ambulatory lp1 22:26 Acuity: LEELEE 3 lp1 Triage Assessment: 23:23 General: Appears in no apparent distress. Behavior is calm, cooperative, appropriate kd3 for age. Pain: Denies pain. 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 - Social history:: Smoking status: Patient reports the use of cigarette tobacco products, smokes one pack cigarettes per day. - Family history:: not pertinent. Screenin:29 Fall Risk None identified. lp1 23:23 Abuse screen: Denies threats or abuse. Denies injuries from another. Nutritional kd3 screening: No deficits noted. Tuberculosis screening: No symptoms or risk factors identified. Assessment: 22:50 General: Appears in no apparent distress. comfortable, Behavior is calm, cooperative. as6 22:50 Pain: Complains of pain in suprapubic area and left lower quadrant and right lower as6 quadrant Quality of pain is described as crampy. Neuro: Level of Consciousness is awake, alert, obeys commands, Oriented to person, place, time, situation. Cardiovascular: JVD is absent Patient's skin is warm and dry. Respiratory: Respiratory effort is even, unlabored, Respiratory pattern is regular, symmetrical. : Reports vaginal bleeding that is spotty. Vital Signs: 22:26 BP 129 / 92; Pulse 106; Resp 16; Temp 98.4(TE); Pulse Ox 100% on R/A; Weight 76.2 kg lp1 (R); Height 5 ft. 2 in. (157.48 cm); Pain 7/10; 23:55 BP 119 / 77; Pulse 99; Resp 20 S; Pulse Ox 100% on R/A; as6 22:26 Body Mass Index 30.73 (76.20 kg, 157.48 cm) lp1 ED Course: 22:09 Patient arrived in ED. ag3 22:11 Hardeep Lomas MD is Attending Physician. jasmina 22:22 Shane Bassett, JUSTUS is Primary Nurse. as6 22:26 Arm band placed on. lp1 22:27 Triage completed. lp1 23:00 Inserted saline lock: 20 gauge in right antecubital area, using aseptic technique. as6 Blood collected. 23:23 Patient has correct armband on for positive identification. Bed in low position. Call kd3 light in reach. 23:37 US Transvaginal Ob In Process Unspecified. EDMS 23:40 Ed Delacruz MD is Referral Physician. jasmina 23:55 No provider procedures requiring assistance completed. as6 09/18 00:31 IV discontinued, intact, bleeding controlled, No redness/swelling at site. Pressure as6 dressing applied. Administered Medications: 09/17 23:05 Drug: NS 0.9% 1000 ml Route: IV; Rate: 1 bolus; Site: right antecubital; as6 09/18 00:30 Follow up: Response: No adverse reaction; IV Status: Completed infusion; IV Intake: as6 1000ml Intake: 00:30 IV: 1000ml; Total: 1000ml. as6 Outcome: 09/17 23:40 Discharge ordered by . jasmina 09/18 00:31 Discharged to home ambulatory. as6 Condition: stable Discharge instructions given to patient, Instructed on discharge instructions, follow up and referral plans. Demonstrated understanding of instructions, follow-up care. 00:31 Patient left the ED. as6 Signatures: Dispatcher [employer] EDHardeep Caldera MD MD cha Pena, Laura, RN RN lp1 Nancy Tabor ag3 Shane Bassett RN RN as6 Vivi Villalobos RN RN kd3 Corrections: (The following items were deleted from the chart) 09/17 23:55 23:53 Obstetrical Assessment: as6 as6
[2021-09-18 04:58] VITALS: TEMP 98.4; O2SAT 100
[2021-09-18 05:03] VITALS: BP 119/77
--- NOTE | 2021-09-18 10:13 | RAD REPORT ---
EXAM DESCRIPTION: US - Transvaginal OB - 09/17/2021 11:35 pm CLINICAL HISTORY: 26 years, Female, ABD CRAMPING, COMPARISON: None. TECHNIQUE: Utilizing a transvaginal array transducer, real-time ultrasound evaluation of the female pelvis was performed. Color Doppler imaging was used to assess vascular flow. FINDINGS: The uterus measures 9.3 x 4.8 x 5.1 cm. The endometrial stripe demonstrate to be normal and measure 11.6 mm, no gestational sac and/or evidence for intrauterine is identified. The right ovary measured 2.2 x 1.5 x 1.9 cm, the left ovary measures 3.7 x 2.0 x 2.4 cm. There is nor mal vascular flow and spectral waveforms with no evidence for torsion. No free fluid was identified in the posterior cul-de-sac, no adnexal masses seen. IMPRESSION: UNREMARKABLE PELVIC ULTRASOUND. NO EVIDENCE FOR GESTATIONAL SAC AN/OR INTRAUTERINE PREGN CASEY. NO ADNEXAL MASSES SEEN. Electronically signed by: Erlin Vivar MD 09/17/2021 11:54 PM CDT Due to temporary technical issues with the PACS/Fluency reporting system, reports are being signed by the in house radiologist without review as a courtesy to ensure prompt reporting. The interpreting r adiologist is fully responsible for the content of the report.
== END 2021-09-18 00:31 | disposition home or self-care (01) ==
LOC: ER 22:06
DX: O20.0 Threatened abortion (principal); O99.331 Smoking (tobacco) complicating pregnancy, first trimester; F17.210 Nicotine dependence, cigarettes, uncomplicated; Z3A.01 Less than 8 weeks gestation of pregnancy
CPT/HCPCS: 36415; 76817; 80048; 81003; 81025; 84702; 85025; 86900; 86901; 96360; 99284; J7030

== ENCOUNTER 2021-11-20 00:49 | Emergency (ER) | payer SELFPAY ==
--- OUTSIDE RECORDS SUMMARY | 2021-11-20 00:54 | XMS REPORT | Continuity of Care Document ---
:1995 Author Organization [facility] t Address [address] [place] [address] Care Team Providers Name Role Phone Pcp, Does Not Have A Primary Care Physician Karo Hernandez MD Attending Clinician Karo HERNANDEZ Attending Clinician Unavailable Doctor Unassigned, Name Attending Clinician Unavailable Myron Attending Clinician Unavailable Ultrasound, Mfm Attending Clinician Unavailable Francia MORATAYA Attending Clinician Eva Attending Clinician Unavailable Myron Admitting Clinician Unavailable Payers Payer Name Policy Type Policy Number Effective Date Expiration Date [facility] [id number] 2021 COMMUNITY PLAN - 00:00:00 [facility] (MEDICAID HMO) Problems Condition Condition Condition Status Onset Resolution Last Treating Co mments Source Name Details Category Date Date Treatment Clinician Date Gonorrhea Gonorrhea Disease Active Uni vers 01-24 ity of 00:00: [address] Chlamydia Chlamydia Disease Active Uni vers trachomati trachomati 01-24 it y of s s 00:00: [place] infection infection 00 [facility] of lower of lower Branch genitourin genitourin sonam sites sonam sites Tobacco Tobacco Disease Active Univers use use 01-23 ity of 00:00: [address] Obesity Obesity Disease Active 2017-05 Univers (BMI (BMI 1-02 ity of 30-39.9) 30-39.9) 00:00: [place] 00 [facility] Allergies, Adverse Reactions, Alerts Allergy Allergy Status Severity Reaction(s) Onset Inactive Treating Comm ents Source Name Type Date Date Clinician NO KNOWN Drug Active Univers ALLERGIE Class ity of S [facility] Social History Social Habit Start Date Stop Date Quantity Comments Source ASSERTION [facility] History of tobacco Cigarette Smoker University [facility] Exposure to 2021-10-08 2021-10-18 Not sure [facility] SARS-CoV-2 (event) 00:00:00 13:55:00 [facility] Alcohol intake 2021-10-18 2021-10-18 Current University 00:00:00 00:00:00 non-drinker of [facility] alcohol Branch (finding) Tobacco use and 2021-01-23 2021-01-23 Never used Universit y of exposure 00:00:00 00:00:00 [facility] Cigarettes smoked 2021-01-23 2021-01-23 Univers ity of current (pack per 00:00:00 00:00:00 ) - Reported Branch Sex Ass[birth year] At [birth year] Universit y of 00:00:00 00:00:00 [facility] Smoking Status Start Date Stop Date Source Current every day smoker 2021-01-23 00:00:00 Uni versity of [facility] Medications Ordered Filled Start Stop Current Ordering Indication Dosage Frequency Signature Comments Components Source Medication Medication Date Date Medication? Clinician (SIG) Name Name miSOPROStoL 2021- No [id number] 800ug Univers (CYTOTEC) 11-01 06- ity of tablet 800 21:15: 20:14 [place] [facility] 00 :00 [facility] miSOPROStoL 2021- No [id number] 800ug 800 mcg, Univers (CYTOTEC) 11-01 Vaginal, ity o f tablet 800 21:15: 20:14 ONCE, 1 Jerry as mcg 00 :00 dose, On [facility] 11/01/21 Branch at 1615, Routine miSOPROStoL 2- No [id number] 800ug Univers (CYTOTEC) 11-01 ity of tablet 800 21:15: 20:14 [place] mcg 00 :00 [facility] miSOPROStoL 2021- No [id number] 800ug 800 mcg, Univers (CYTOTEC) 11-01 Vaginal, ity o f tablet 800 21:15: 20:14 ONCE, 1 Jerry as mcg 00 :00 dose, On [facility] 11/01/21 Branch at 1615, Routine ondansetron Yes [id number] 4mg Take 1 Univers 4 mg 5-16 tablet by ity of disintegrat 00:00: mouth [place] ing tablet 00 every 8 Medica l (eight) Branch hours as needed for Nausea and Vomiting (N/V). ondansetron Yes [id number] 4mg Take 1 Univers 4 mg 5-16 tablet by ity of disintegrat 00:00: mouth [place] ing tablet 00 every 8 Medica l (eight) Branch hours as needed for Nausea and Vomiting (N/V). ondansetron Yes [id number] 4mg Take 1 Univers 4 mg 5-16 tablet by ity of disintegrat 00:00: mouth [place] ing tablet 00 every 8 Medica l (eight) Branch hours as needed for Nausea and Vomiting (N/V). ondansetron Yes [id number] 4mg Take 1 Univers 4 mg 5-16 tablet by ity of disintegrat 00:00: mouth [place] ing tablet 00 every 8 Medica l (eight) Branch hours as needed for Nausea and Vomiting (N/V). Vital Signs Vital Name Observation Time Observation Value Comments Source Systolic blood 2021-11-01 19:40:00 104 mm[Hg] Univer sity [facility] Diastolic blood 2021-11-01 19:40:00 69 mm[Hg] [facility] Heart rate 2021-11-01 19:40:00 81 /min [facility] Body temperature 2021-11-01 19:40:00 36.94 Maria Guadalupe [facility] Respiratory rate 2021-11-01 19:40:00 18 /min [facility] Body height 2021-11-01 19:40:00 157.5 cm [facility] Body weight 2021-11-01 19:40:00 79.379 kg [facility] BMI 2021-11-01 19:40:00 32.01 kg/m2 [facility] Procedures Procedure Date / Time Performed Performing Clinician [facility]ly [facility] e NET UI DEVELOPER [facility] 2021-10-18 05:01:00 Doctor Unassigned, No Univer [facility] ULTRASOUND Name [facility] Encounters Start End Encounter Admission Attending Care Care Encounter Source Date/Time Date/Time Type Type Clinicians Facility Department ID 2021-11-08 2021-11-08 [facility] [id number] Univers 00:00:00 00:00:00 Management Genia COLIN [id number] itaminta [facility] [id number] PROF[place] [phone] Ak dical NAL [address] [place] [address] 2021-11-07 2021-11-07 [facility] [id number] Univers 10:00:00 10:00:[facility] 2021-11-07 2021-11-07 [facility] [id number] Univers 10:00:00 10:00:00 GENIA [id number] ity [facility] 2021-11-01 2021-11-01 [facility] [id number] Univers 13:45:00 14:15:00 Visit Genia COLIN [id number] [facility] [id number] [phone] Ak dical NAL [address] [place] [address] 2021-10-31 2021-10-31 [facility] [id number] Univers 10:30:00 10:30:00 [facility] 2021-10-18 2021-10-18 Orders Doctor ANTHONY [id number] Univers 00:00:00 00:00:00 Only Unassigned, PATO [id number] ity of [place] [facility] 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, [facility] [id number] 12:59:15 13:59:15 Visit Ramonita Colin [id number] [place] [id number] Professio [phone] [address] 2019-01-11 2019-01-11 [facility] [id number] 09:22:18 09:47:30 Chester Colin [id number] Visit [place] [id number] Professio [phone] [address] 2019-01-08 2019-01-08 [facility] [id number] 00:00:00 00:00:00 Chester Colin [id number] [place] [id number] Professio [phone] [address] 2018-12-28 2018-12-28 [facility] [id number] 12:11:23 12:38:16 Visit Lashaun NET UI DEVELOPER [id number] [facility] [id number] MATERNAL [phone] & CHILD [address] [place] [address] 2018-12-18 2018-12-18 Patient Doctor ANTHONY [id number] 00:00:00 00:00:00 Secure Unassigned, PATO [id number] [place] [facility] [phone] [id number] Results This patient has no known results.
--- NOTE | 2021-11-20 02:11 | ER ---
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 I am kd3 supposed to get scanned frequently for tumors but my last CT scan was when I was 11. I have had a pretty severe headache for the past week or so and I had a miscarriage about 2 and 1/2 weeks ago. I am not sure if it has something to do with the miscarriage or with my mutation but I am really worried. Coronavirus screen: Vaccine status: Patient reports being unvaccinated. Ebola Screen: No symptoms or risks identified at this time. Initial Sepsis Screen: Does the patient meet any 2 criteria? No. Patient's initial sepsis screen is negative. Does the patient have a suspected source of infection? No. Patient's initial sepsis screen is negative. Risk Assessment: Do you want to hurt yourself or someone else? Patient reports no desire to harm self or others. Onset of symptoms was November 20, 2021. 01:10 Method Of Arrival: Ambulatory kd3 01:10 Acuity: LEELEE 3 kd3 Triage Assessment: 01:10 Headache History: The patient has had previous headaches and this one is different than kd3 previous episodes. General: Appears uncomfortable, Behavior is calm, cooperative. Pain: Complains of pain in right base of the skull and forehead Pain currently is 8 out of 10 on a pain scale. Also complains of nausea. 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 - Social history:: Smoking status: unknown. Screenin:15 Abuse screen: Denies threats or abuse. Denies injuries from another. Nutritional kd3 screening: No deficits noted. Tuberculosis screening: No symptoms or risk factors identified. Fall Risk None identified. Assessment: 01:05 General: Appears in no apparent distress. well developed, well nourished, Behavior is kl calm, cooperative, appropriate for age. Pain: Complains of pain in top of head, forehead and right base of the skull Pain began off and on x 1 month. Neuro: No deficits noted. 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 Full function Gait is steady, Speech is normal, Facial symmetry appears normal, Pupils are PERRLA, Intact Reports headache. Vital Signs: 01:07 BP 104 / 79; Pulse 78; Resp 16; Temp 98.1(T); Pulse Ox 99% on R/A; Pain 6/10; kl 02:18 BP 115 / 77; Pulse 91; Resp 16; Pulse Ox 100% on R/A; Pain 5/10; kl Mccarley Coma Score: 01:30 Eye Response: spontaneous(4). Verbal Response: oriented(5). Motor Response: obeys kb commands(6). Total: 15. ED Course: 00:53 Patient arrived in ED. ja2 00:53 [facility]C [facility] kb 00:53 Javier Dutta MD is Attending Physician. kb 01:10 Vivi Villalobos, JUSTUS is Primary Nurse. kd3 01:10 Arm band placed on right wrist. kd3 01:14 Triage completed. kd3 01:15 Patient has correct armband on for positive identification. kd3 01:27 CT Head Brain wo Cont In Process Unspecified. EDMS 02:17 No provider procedures requiring assistance completed. Patient did not have IV access kl during this emergency room visit. Administered Medications: 02:16 Drug: [place] (HYDROcodone-acetaminophen) (7.5 mg-325 mg) 1 tabs Route: PO; kl 02:16 Follow up: Response: No adverse reaction kl Medication: 02:16 VIS not applicable for this client. kl Outcome: 02:10 Discharge ordered by . kb 02:17 Patient left the ED. kl 02:17 Discharged to home ambulatory. kl 02:17 Condition: improved 02:17 Discharge instructions given to patient, Instructed on discharge instructions, follow up and referral plans. Signatures: Dispatcher [employer] Bonnie Her, MONSEC VALENTE-Jelena Hodges, RN RN Natali Smith Kyli RN RN kd3
--- NOTE | 2021-11-20 02:11 | EDPHYS ---
Physician Documentation [facility] Name: Natali Velasco Age: 26 yrs Sex: Female : 1995 Arrival Date: 11/20/2021 Time: 00:53 Bed 12 Private MD: ED Physician Javier Dutta HPI: 11/20 01:31 This 26 yrs old Female presents to ER via Ambulatory with complaints of Headache. kb 01:31 The patient complains of pain to the right base of the skull and forehead and top of kb head. The patient describes the headache as throbbing. Onset: The symptoms/episode began/occurred 1 month(s) ago. Associated signs and symptoms: Pertinent positives: nausea. Severity of symptoms: At its worst the pain was moderate, in the emergency department the pain is unchanged. Headache History: The patient has had previous headaches. The symptoms are alleviated by nothing. the symptoms are aggravated by nothing. The patient has experienced similar episodes in the past. The patient has not recently seen a physician. Pt reports diffuse headache that started a month ago. States it let up for about a week, then came back. States the headache is daily. Pt has history of NF1 and was told she needed CT scans yearly to check for tumor growth, but hasn't had a scan since she was 11 years old. States she had yearly scans up to that point and they were always normal. Came tonight to get a scan because she had someone to watch her kids so she could come. . 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 - Social history:: Smoking status: unknown. ROS: 01:30 Constitutional: Negative for fever, chills, and weight loss. kb 01:30 Abdomen/GI: Positive for nausea. 01:30 Neuro: Positive for headache. 01:30 All other systems are negative. Exam: 01:30 Constitutional: This is a well developed, well nourished patient who is awake, alert, kb and in no acute distress. Head/Face: Normocephalic, atraumatic. Eyes: Pupils equal round and reactive to light, extra-ocular motions intact. Lids and lashes normal. Conjunctiva and sclera are non-icteric and not injected. Cornea within normal limits. Periorbital areas with no swelling, redness, or edema. ENT: Moist Mucous membranes Cardiovascular: Regular rate and rhythm with a normal S1 and S2. No gallops, murmurs, or rubs. No pulse deficits. Respiratory: Respirations even and unlabored. No increased work of breathing. Talking in full sentences Skin: Warm, dry with normal turgor. Normal color. MS/ Extremity: Pulses equal, no cyanosis. Neurovascular intact. Full, normal range of motion. Neuro: Awake and alert, GCS 15, oriented to person, place, time, and situation. Moves all extremities. Normal gait. Psych: Awake, alert, with orientation to person, place and time. Behavior, mood, and affect are within normal limits. Vital Signs: 01:07 BP 104 / 79; Pulse 78; Resp 16; Temp 98.1(T); Pulse Ox 99% on R/A; Pain 6/10; kl 02:18 BP 115 / 77; Pulse 91; Resp 16; Pulse Ox 100% on R/A; Pain 5/10; kl Cristal Coma Score: 01:30 Eye Response: spontaneous(4). Verbal Response: oriented(5). Motor Response: obeys kb commands(6). Total: 15. MDM: 00:53 Patient medically screened. kb 01:30 Data reviewed: vital signs, nurses notes. kb 02:09 Data interpreted: Pulse oximetry: on room air is 99 %. Interpretation: normal. kb Counseling: I had a detailed discussion with the patient and/or guardian regarding: the historical points, exam findings, and any diagnostic results supporting the discharge/admit diagnosis, radiology results, the need for outpatient follow up, a neurologist, to return to the emergency department if symptoms worsen or persist or if there are any questions or concerns that arise at home. ED course: No sinus or mastoid tenderness. No signs/symptoms of sinusitis. 11/20 01:00 Order name: CT Head Brain wo Cont kb Administered Medications: 02:16 Drug: [place] (HYDROcodone-acetaminophen) (7.5 mg-325 mg) 1 tabs Route: PO; 02:16 Follow up: Response: No adverse reaction Disposition: 02:52 Co-signature as Attending Physician, Javier Dutta MD I agree with the assessment and kdr plan of care. Disposition Summary: 11/20/21 02:10 Discharge Ordered Location: Home kb Condition: Stable kb Diagnosis - Headache kb Followup: kb - With: Emergency Department - When: As needed - Reason: Worsening of condition Followup: kb - With: Private Physician - When: 2 - 3 days - Reason: Recheck today's complaints, Continuance of care, Re-evaluation by your physician Discharge Instructions: - Discharge Summary Sheet kb - General Headache Without Cause, Hsdz-nt-Caax kb Forms: - Medication Reconciliation Form kb - Thank You Letter kb - Antibiotic Education kb - Prescription Opioid Use kb Signatures: Dispatcher [employer] EDMS Bonnie Marte, VALENTE-C VALENTE-Jelena Hodges RN RN kl Rittger, Kevin, MD MD [facility] Vivi Villalobos RN RN kd3 Corrections: (The following items were deleted from the chart) 01:31 01:30 Constitutional: This is a well developed, well nourished patient who is awake, kb alert, and in no acute distress. Head/Face: Normocephalic, atraumatic. ENT: Moist Mucous membranes Cardiovascular: Regular rate and rhythm with a normal S1 and S2. No gallops, murmurs, or rubs. No pulse deficits. Respiratory: Respirations even and unlabored. No increased work of breathing. Talking in full sentences Skin: Warm, dry with normal turgor. Normal color. MS/ Extremity: Pulses equal, no cyanosis. Neurovascular intact. Full, normal range of motion. Neuro: Awake and alert, GCS 15, oriented to person, place, time, and situation. Moves all extremities. Normal gait. Psych: Awake, alert, with orientation to person, place and time. Behavior, mood, and affect are within normal limits. kb
[2021-11-20] MEDS ORDERED: HYDROCODONE/APAP 7.5/325 MG TAB ONE (02:18)
[2021-11-20 02:25] VITALS: BP 104/79; TEMP 98.1; O2SAT 99
--- NOTE | 2021-11-20 16:09 | RAD REPORT ---
EXAM DESCRIPTION: CT - Head Brain Wo Cont - 11/20/2021 6:27 am CLINICAL HISTORY: Headache, hx NF1 COMPARISON: None. TECHNIQUE: Head/brain axial images acquired without contrast. Coronal and sagittal reformats created . Exam performed according to departmental dose-optimization program which includes automated exposur e control, adjustment of mA and/or kV according to patient size, and/or use of iterative reconstructi on technique. FINDINGS: No midline shift, mass effect, intracranial hemorrhage, or hydrocephalus. Brain parenchyma unremarkable. Partial Empty Sella (likely normal variant). Sphenoid sinus left aspect shows opacification. Right mastoid air cells show mild opacification that may represent fluid/effusion or mastoiditis. No skull fracture or significant skull lesion. IMPRESSION: 1. Unremarkable CT brain appearance. 2. Sphenoid sinus left aspect opacification. This may represent acute or chronic sinusitis. 3. Mild right mastoid air cell opacification. This may represent fluid/effusion or mastoiditis. Electronically signed by: Miguel Mota MD 11/20/2021 1:45 AM CDT Due to temporary technical issues with the PACS/Fluency reporting system, reports are being signed by the in house radiologists without. review as a courtesy to insure prompt reporting. The interpreting radiologist is fully responsible for the content of the report
== END 2021-11-20 02:17 | disposition home or self-care (01) ==
LOC: ER 00:49
DX: R51.9 Headache, unspecified (principal)
CPT/HCPCS: 70450

== ENCOUNTER 2022-10-01 19:06 | Emergency (ER) | payer OTHER ==
--- OUTSIDE RECORDS SUMMARY | 2022-10-01 19:09 | XMS REPORT | Continuity of Care Document ---
:1995 Author Organization [facility] t Address [address] [place] [address] Care Team Providers Name Role Phone Pcp, Patient Does Not Have A Primary Care Physician [phone] JOIE WOODS Attending Clinician Unavailable Joie Woods DO Attending Clinician ARIANNA SMITH Attending Clinician Unavailable ALIDA WOODS Attending Clinician Unavailable Genia Hernandez MD Attending Clinician GENIA HERNANDEZ Attending Clinician Unavailable Doctor Unassigned, [place] Attending Clinician Unavailable _[facility] Attending Clinician Unavailable CHERYLE SAENZ Attending Clinician Unavailable Chanda Bryant Attending Clinician Cheryle Saenz MD Attending Clinician TUNDE ACOSTA Attending Clinician Unavailable Visit, [facility] Nurse Attending Clinician Unavailable Arianna Duarte Attending Clinician [phone] Alida Tina Attending Clinician KINJAL EISENBERG Attending Clinician Unavailable Marion Correa Attending Clinician Javier Barron DO Attending Clinician Catherine Stevens S Attending Clinician Ultrasound, Adc Mfm Attending Clinician Unavailable Seda Smith Attending Clinician Francia MORATAYA, [place] Attending Clinician Lashaun Velasquez Attending Clinician Unavailable Beto Connor MD Attending Clinician GC_[facility]_Prettynandini_G Admitting Clinician Unavailable CHANDA DON Admitting Clinician Unavailable Payers Payer Name Policy Type Policy Number Effective Date Expiration Date Elsy lopez [facility] [id number] 2018 MEDICAID 00:00:00 [facility] [id number] 2021 00:00:00 [facility] [id number] 2021 COMMUNITY PLAN - 00:00:00 [facility] PLUS (MEDICAID HMO) [facility] [id number] 2020 00:00:00 MEDICAID PENDING PENDING 2020 00:00:00 Problems Condition Condition Condition Status [...] Tobacco Tobacco Disease Active Univers use use 8-31 ity of 00:00: [place] 00 Medical Branch Obesity Obesity Disease Active 2017-05 Univers (BMI (BMI 1-02 ity of 30-39.9) 30-39.9) 00:00: [place] 00 Medical Branch Allergies, Adverse Reactions, Alerts Allergy Allergy Status Severity Reaction(s) Onset Inactive Treating Comm ents Source Name Type Date Date Clinician NO KNOWN Drug Active Univers ALLERGIE Class ity of S [facility] Social History Social Habit Start Date Stop Date Quantity Comments Source ASSERTION [facility] History of tobacco Cigarette Smoker University of [facility] Exposure to 2022-01-31 2022-02-[address] [facility] SARS-CoV-2 (event) 00:00:00 15:04:00 [facility] Alcohol intake 2022-02-10 2022-02-10 Current University 00:00:00 00:00:00 non-drinker of [facility] alcohol Branch (finding) Tobacco use and 2021-01-23 2021-01-23 Smokeless Universit y of exposure 00:00:00 00:00:00 tobacco non-user [facility] dical [place] Cigarettes smoked 2021-01-23 2021-01-23 Univers ity of current (pack per 00:00:00 00:00:00 [facility] ) - Reported Branch Sex Ass[birth year] At [birth year] [facility] 00:[facility] 00[facility]00:00 [facility] Smoking Status Start Date Stop Date Source Smokes tobacco daily 2021-01-23 00:00:00 [facility] Medications Ordered Filled Start Stop Current Ordering Indication Dosage Frequency Signature Comments Components Source Medication Medication Date Date Medication? Clinician (SIG) Name Name ibuprofen 2021- No 600mg 600 mg, Uni vers (IBU) 02-10 Oral, ity of tablet 600 20:15: 20:14 ONCE, 1 Jerry as mg 00 :00 dose, On [facility] [place] 02/10/22 at 1515, VINCENT cyclobenzap Yes [id number] 10mg Take 1 Univers rine 10 mg 02-10 tablet by ity of tablet 00:00: mouth 3 [place] 00 (three) Medical times Branch daily as needed for Muscle Spasms. miSOPROStoL 2021- No [id number] 800ug Univers (CYTOTEC) 11-01 ity of tablet 800 21:15: 20:14 [place] mcg 00 :00 Medical Branch miSOPROStoL 2021- No [id number] 800ug 800 mcg, Univers (CYTOTEC) 11-01 Vaginal, ity o f tablet 800 21:15: 20:14 ONCE, 1 Jerry as mcg 00 :00 dose, On [facility] 11/01/21 Branch at 1615, Routine miSOPROStoL 2021- No [id number] 800ug Univers (CYTOTEC) 11-01 ity of tablet 800 21:15: 20:14 [place] mcg 00 :00 Medical Branch miSOPROStoL 2021- No [id number] 800ug 800 mcg, Univers (CYTOTEC) 11-01 Vaginal, ity o f tablet 800 21:15: 20:14 ONCE, 1 Jerry as mcg 00 :00 dose, On [facility] 11/01/21 Branch at 1615, Routine ondansetron Yes [id number] 4mg Take 1 Univers 4 mg 5-16 tablet by ity of disintegrat 00:00: mouth [place] ing tablet 00 every 8 Medica l (eight) Branch hours as needed for Nausea and Vomiting (N/V). ondansetron Yes [id number] 4mg Take 1 Univers 4 mg 5-16 tablet by ity of disintegrat 00:00: mouth [place] ing tablet 00 every 8 Medica l (eight) Branch hours as needed for Nausea and Vomiting (N/V). ondansetron 2021-0 Yes [id number] 4mg Take 1 Univers 4 mg 5-16 tablet by ity of disintegrat 00:00: mouth [place] ing tablet 00 every 8 Medica l (eight) Branch hours as needed for Nausea and Vomiting (N/V). ondansetron 2021-0 Yes [id number] 4mg Take 1 Univers 4 mg 5-16 tablet by ity of disintegrat 00:00: mouth [place] ing tablet 00 every 8 Medica l (eight) Branch hours as needed for Nausea and Vomiting (N/V). ondansetron 2021-0 Yes [id number] 4mg Take 1 Univers 4 mg 5-16 tablet by ity of disintegrat 00:00: mouth [place] ing tablet 00 every 8 Medica l (eight) Branch hours as needed for Nausea and Vomiting (N/V). ondansetron 2021-0 Yes [id number] 4mg Take 1 Univers 4 mg 5-16 tablet by ity of disintegrat 00:00: mouth [place] ing tablet 00 every 8 Medica l (eight) Branch hours as needed for Nausea and Vomiting (N/V). Vital Signs Vital Name Observation Time Observation Value Comments Source Body height 2022-02-10 20:10:00 157.5 cm Universi [facility] Systolic blood 2022-02-10 20:06:00 128 mm[Hg] Univer sity of [facility] Diastolic blood 2022-02-10 20:06:00 72 mm[Hg] [facility] Heart rate 2022-02-10 20:06:00 107 /min [facility] Body temperature 2022-02-10 20:06:00 37 Maria Guadalupe [facility] Respiratory rate 2022-02-10 20:06:00 20 /min [facility] Body weight 2022-02-10 20:06:00 [facility] 2022-02-10 20:06:00 32.92 kg/m2 [facility] Oxygen saturation in 2022-02-10 20:06:00 97 /min [facility] Arterial blood by [facility] Pulse oximetry [place] Systolic blood 2021-11-01 19:40:00 104 mm[Hg] [facility] Di[facility] blood 2021-11-01 19:40:00 69 mm[Hg] [facility] Heart rate 2021-11-01 19:40:00 81 /min [facility] Body temperature 2021-11-01 19:40:00 36.94 Maria Guadalupe [facility] Respiratory rate 2021-11-01 19:40:00 18 /min [facility] Body height 2021-11-01 19:40:00 157.5 cm [facility] Body weight 2021-11-01 19:40:00 79.379 kg [facility] BMI 2021-11-01 19:40:00 32.01 kg/m2 [facility] Procedures Procedure Date / Time Performed Performing Clinician [facility] e CONSENT/REFUSAL FOR 2022-02-10 20:08:50 Doctor Unassigned, No Un iversity [facility] DIAGNOSIS AND Name Medical Branch TREATMENT DISCLOSURE AND 2021-11-01 05:01:00 Doctor Unassigned, No [facility]iver [facility] [place] CONSENT, MEDICAL AND Name Medical Bra [facility] SURGICAL PROCEDURES REGISTERED VETERINARY TECHNICIAN CLINIC 2021-10-18 05:01:00 Doctor Unassigned, No [facility] [place] ULTRASOUND Name Medical Branch Encounters Start End Encounter Admission Attending Care Care Encounter Source Date/Time Date/Time Type Type Clinicians Facility Department ID 2021-03-26 Emergency [facility] [id number] Univers 04:29:49 ity [facility] 2021-03-24 Emergency [facility] [id number] Univers 10:44:16 ity [facility] 2021-03-23 Emergency [facility] [id number] Univers 17:58[facility] 2022-02-10 2022-02-10 Emergency [facility] [id number] Univers 15:09:00 15:28:00 JOIE david [facility] 2022-02-10 2022-02-10 [facility] 1.2.840.114 [id number] Univers 15:09:00 15:28:00 [id number] [facility] [id number] [facility] [id number] [place] [address] Branch 2022-01-24 2022-01-24 Outpatient R AKINSIPE, [facility] [id number] Univers 13:15:00 13:15:00 ARIANNA ity o f [facility] 2022-01-24 2022-01-24 Outpatient R AKINSIPE, [facility] [id number] Univers 13:15:00 13:15:00 ARIANNA ity o f [facility] 2022-01-24 2022-01-24 Outpatient R AKINSIPE, [facility] [id number] Univers 13:15:00 13:15:00 ARIANNA ity o f [facility] 2022-01-24 2022-01-24 Outpatient R CHUCK [facility] [id number] Univers 13:00:00 13:00:00 ALIDA david [facility] 2021-11-08 2021-11-08 [facility] 1.2.840.114 [id number] Univers 00:00:00 00:00:00 Management Genia IBRAHIM [id number] ity [facility] [id number] [place] [id number] Vt [address] 2021-11-07 2021-11-07 Outpatient R ADUM, [facility] [id number] Univers 10:00:00 10:00:00 [facility] 2021-11-01 2021-11-01 Office Ad, [facility] 1.2.840.114 [id number] Univers 13:45:00 14:15:00 Visit Genia IBRAHIM [id number] ity [facility] [id number] [id number] Vt dic[address] 2021-11-01 2021-11-01 Outpatient R ADUM, [facility] [id number] Univers 13:45:00 13:45:00 [facility] 2021-11-01 2021-11-01 Outpatient R AD, [facility] [id number] Univers 11:00:00 11:00:00 [facility] 2021-11-01 2021-11-01 Orders Doctor CRUZ 1.2.840.114 [id number] Univers 00:00:00 00:00:00 Only Unassigned, PATO [id number] [facility] [id number] Jerry as [id number] [address] 2021-10-31 2021-10-31 Outpatient R ADUM, [facility] [id number] Univers 10:30:00 10:30:00 [facility] 2021-10-31 2021-10-31 Outpatient R ADUM, [facility] [id number] Univers 10:30:00 10:30:00 [facility] 2021-10-18 2021-10-18 Outpatient R ADUM, [facility] [id number] Univers 14:00:00 15:21:40 GENIA david [facility] 2021-10-18 2021-10-18 Office Adum, [facility] 1.2.840.114 [id number] Univers 14:00:00 15:21:40 Visit Genia IBRAHIM [id number] ity of [id number] [place] [facility] [id number] Vt dical [address] 2021-10-18 2021-10-18 Outpatient R ADKATRIN, [facility] [id number] Univers 14:00:00 15:21:40 GENIA david [facility] 2021-10-18 2021-10-18 Orders Doctor CRUZ 1.2.840.114 [id number] Univers 00:00:00 00:00:00 Only Unassigned, PATO 350.1.13.10 ity of [place] [facility] [id number] Jerry as [phone] [facility] [address] [place] 2021-10-17 2021-10-17 Outpatient GC_[facility]_ PRIV PRIV [id number] [facility] 09:52:00 09:52:00 Marlon_G [id number] [facility] 2021-10-08 2021-10-09 Emergency X AL GAVICK ERT [id number] Univers 20:41:00 01:43:00 CHERYLE david [facility] 2021-10-08 2021-10-09 Emergency Chanda Don [facility] 1.2.840 .114 [id number] Univers 20:41:00 01:43:00 Cheryle Saenz 350.1.13.10 ity of [id number] [place] [facility] [id number] [facility] 084 [place] 2021-09-27 2021-09-27 Outpatient GC_[facility]_ PRIV PRIV [id number] [facility] 12:35:00 12:35:00 Shelton_G [id number] [facility] 2021-09-27 2021-09-27 Outpatient GC_[facility]_ PRIV PRIV [id number] [facility] 12:35:00 12:35:00 Gary [id number] [facility] 2021-09-06 2021-09-06 Outpatient R KARLA [facility] [id number] Univers 10:30:00 10:30:00 TUNDE david o f [facility] 2021-06-08 2021-06-08 Nurse Visit, Ang-Rmchp Nurse [facility] 1.2 .840.114 [id number] Univers 13:30:00 14:23:35 Visit Arianna Smith REGISTERED VETERINARY TECHNICIAN 350.1.13. 10 ity of [facility] [id number] Jerry as MATERNAL [id number] [facility] ical & CHILD [address] [place] [address] 2021-06-08 2021-06-08 [facility] [id number] Univers 13:30:00 13:30:00 ARIANNA hawk [facility] 2021-06-07 2021-06-07 [facility]phone [facility] 1.2.840.114 [id number] Univers 00:00:00 00:00:00 Arianna Butler REGISTERED VETERINARY TECHNICIAN [id number] ity of [facility] [id number] Jerry as MATERNAL [id number] [facility] & CHILD [address] [place] [address] 2021-06-05 2021-06-05 [facility] [id number] Univers 13:15:00 14:00:08 ARIANNA hawk [facility] 2021-06-05 2021-06-05 [facility] [id number] Univers 13:15:00 14:00:08 Visit Arianna Butler REGISTERED VETERINARY TECHNICIAN [id number] ity [facility] [id number] Jerry as MATERNAL [id number] [facility] & CHILD [address] [place] [address] 2021-04-25 2021-04-25 [facility] [id number] Univers 10:30:00 10:30:00 ALIDA david [facility] 2021-02-15 2021-02-15 Outpatient R [facility] [id number] Univers 08:30:00 08:30:00 [facility] 2021-01-25 2021-01-25 Outpatient R [facility] [id number] Univers 08:30:00 08:30:00 [facility] 2021-01-24 2021-01-24 Nurse Visit, Ang-Rmchp Nurse [facility] 1.2 .840.114 [id number] Univers 15:05:39 15:25:18 Visit Alida Woods REGISTERED VETERINARY TECHNICIAN [id number] ity of REGIONAL [id number] Jerry as MATERNAL [id number] [facility] ical & CHILD [address] [place] [address] 2021-01-24 2021-01-24 [facility] [id number] Univers 15:15:00 15:15:00 ALIDA david [facility] 2021-01-24 2021-01-24 [facility] [id number] Univers 15:15:00 15:15:00 ALIDA david [facility] 2021-01-24 2021-01-24 [facility] [id number] Univers 13:30:00 13:30:00 ALIDA david [facility] 2021-01-24 2021-01-24 Telephone [facility] 1.2.840.114 [id number] Univers 00:00:00 00:00:00 Alida Perla REGISTERED VETERINARY TECHNICIAN [id number] it y of REGIONAL [id number] Jerry as MATERNAL [id number] [facility] [address] [place] [address] 2021-01-23 2021-01-23 Office [facility] [id number] Univers 15:42:33 16:33:05 Visit Alida Perla REGISTERED VETERINARY TECHNICIAN [id number] it y of REGIONAL [id number] Jerry as MATERNAL [id number] [facility] [address] [place] [address] 2021-01-23 2021-01-23 Out[facility] [id number] Univers 15:45:00 15:45:00 ALIDA david [facility] 2021-01-23 2021-01-23 Outpatient Jan EISENBERG [facility] [id number] Univers 13:20:00 13:20:00 KINJAL ity of [facility] 2021-01-23 2021-01-23 Orders Doctor ANTHONY 1.2.840.114 [id number] Univers 00:00:00 00:00:00 Only Unassigned, PATO 350.1.13.10 ity of [place] [facility] 4.2.7.2.686 Jerry as [id number] [address] 2021-01-23 2021-01-23 Orders Doctor ANTHONY 1.2.840.114 [id number] Univers 00:00:00 00:00:00 Only Unassigned, PATO 350.1.13.10 ity of [place] [facility] 4.2.7.2.686 Jerry as [id number] [address] 2020-11-20 2020-11-21 Emergency [facility] [id number] [id number] Univers 23:30:00 01:13:00 Marion Ibrahim 350.1.13.10 i ty of [place] 4.2.7.2.686 [facility] [id number] [address] 2020-11-20 2020-11-20 Orders Doctor CRUZ 1.2.840.114 [id number] Univers 00:00:00 00:00:00 Only Unassigned, PATO 350.1.13.10 ity of [place] [facility] 4.2.7.2.686 Jerry as [id number] [address] 2020-05-05 2020-05-05 Emergency [facility] [id number] Univers 11:04:00 13:18:00 Javier Ibrahim 350.1.13.10 i ty of [place] 4.2.7.2.686 [facility] [id number] [address] 2020-05-05 2020-05-05 Orders Doctor CRUZ 1.2.840.114 [id number] Univers 00:00:00 00:00:00 Only Unassigned, PATO 350.1.13.10 ity of [place] [facility] 4.2.7.2.686 Jerry as [phone] [facility] 00[address] [place] 2020-02-09 2020-02-10 Emergency Arizmendi, [facility] 1.2.085.891 [id number] [facility] 23:48:00 00:26:00 Catherine Ibrahim 350.1.13.10 i ty of [place]7.2.686 [place] [phone] [facility] 084 [place] 2019-01-15 2019-01-15 Home Advisor Ultrasound, Adc [facility] 1.2 .840.114 [id number] [facility] 12:59:15 13:59:15 Visit Merlene Grosscristhian Seda Ibrahim 350.1 .13.10 ity of [place]2.7.2.[place] Profess[place] [id number] [address] 2019-01-15 2019-01-15 Home Advisor Ultrasound, [facility] 1.2.840.114 [id number] 12:59:15 13:59:15 Visit Ramonita hong Ibrahim 350.1.13.10 [place] 4.2.7.2.686 Professio [id number] [address] 2019-01-11 2019-01-11 Routine Diclemente, [facility] 1.2.840.114 [id number] [facility] 09:22:18 09:47:30 [place] Ibrahim 350.1.13.10 ity of Visit [place] 4.2.7.2.686 [place] Profess[place] [id number] [address] 2019-01-11 2019-01-11 Routine Diclemente, [facility] 1.2.840.114 [id number] 09:22:18 09:47:30 [place] Ibrahim 350.1.13.10 Visit [place] 4.2.7.2.686 Professio [id number] [address] 2019-01-08 2019-01-08 Telephone Diclemente, [facility] 1.2.840.114 [id number] 00:00:00 00:00:00 [place] Ibrahim 350.1.13.10 [place] 4.2.7.2.686 Professio [id number] [address] 2019-01-08 2019-01-08 Telephone Francia [facility] 1.2.840.114 [id number] Univers 00:00:00 00:00:00 [place] Ibrahim 350.1.13.10 i ty [place].2.[place] [id number] Vt dical nal [address] [facility] 2018-12-28 2018-12-28 Office Eva [facility] 1.2.840.114 [id number] 12:11:23 12:38:16 Visit Lashaun REGISTERED VETERINARY TECHNICIAN 350.1.13.10 [facility] 4.2.7.2.686 MATERNAL [phone] & CHILD [address] [place] [address] 2018-12-28 2018-12-28 Office Eva Lashaun [facility] 1.2.8 [id number] [facility] 12:11:23 12:38:16 Visit Beto Connor REGISTERED VETERINARY TECHNICIAN 350.1.13.10 ity of [facility] 4.2.7.2.686 Jerry as MATERNAL [phone] Med ical & CHILD [address] [place] [address] 2018-12-18 2018-12-18 Patient Doctor ANTHONY 1.2.840.114 [id number] 00:00:00 00:00:00 Secure Msg Unassigned, PATO 350.1.13.10 [facility] 4.2.7.2.686 [id number] 2018-12-18 2018-12-18 Patient Doctor ANTHONY 1.2.840.114 [id number] [facility] 00:00:00 00:00:00 Secure Msg Unassigned, PATO 350.1.13.10 ity [facility] 4.2.7.2.686 Jerry as [phone] [address] Results This patient has no known results.
--- NOTE | 2022-10-01 21:04 | ER ---
Nurse's Notes [facility] Name: Natali Velasco Age: 27 yrs Sex: Female : 1995 Arrival Date: 10/01/2022 Time: 19:06 Bed 5 Private MD: Diagnosis: Acute sinusitis, unspecified;Cough Presentation: 10/01 19:07 Chief complaint: Patient states: "I have a sore throat, headache, body aches, and nasal as6 drainage". Coronavirus screen: Client presents with at least one sign or symptom that may indicate coronavirus-19. Ebola Screen: No symptoms or risks identified at this time. Initial Sepsis Screen: Does the patient meet any 2 criteria? No. Patient's initial sepsis screen is negative. Does the patient have a suspected source of infection? No. Patient's initial sepsis screen is negative. Risk Assessment: Do you want to hurt yourself or someone else? Patient reports no desire to harm self or others. Onset of symptoms was September 30, 2022. 19:07 Method Of Arrival: Ambulatory as6 19:07 Acuity: LEELEE 3 as6 TAX ASSESSOR: 19:11 LMP 2021, Verified, EDC 06/30/2022, Gestational age from LMP: 53 weeks 3 days as6 Historical: - Allergies: 19:11 No Known Allergies; as6 - PMHx: 19:11 Anemia; Low Iron; as6 - PSHx: 19:11 None; as6 - Immunization history:: Client reports having NOT received the Covid vaccine. - Social history:: Smoking status: Reported history of juuling and/or vaping. Screenin:30 [facility] ED Fall Risk Assessment (Adult) History of falling in the last 3 months, jj7 including since admission No falls in past 3 months (0 pts) Confusion or Disorientation No (0 pts) Intoxicated or Sedated No (0 pts) Impaired Gait No (0 pts) Mobility Assist Device Used No (0 pt) Altered Elimination No (0 pt) Score/Fall Risk Level 0 - 2 = Low Risk Maintained a safe environment. Abuse screen: Denies threats or abuse. Nutritional screening: No deficits noted. Tuberculosis screening: No symptoms or risk factors identified. Assessment: 19:30 General: Appears in no apparent distress. comfortable, Behavior is calm, cooperative, jj7 appropriate for age. Pain:. EENT: Reports SORE THROAT. Vital Signs: 19:07 BP 116 / 89; Pulse 131; Resp 18 S; Temp 98.3(O); Pulse Ox 96% on R/A; Weight 89.81 kg as6 (R); Height 5 ft. 3 in. (R); Pain 0/10; 20:25 BP 107 / 75; Pulse 112; Resp 19; Pulse Ox 98% ; ll3 21:22 BP 113 / 75; Pulse 82; Resp 19; Pulse Ox 99% on R/A; kd3 19:07 Body Mass Index 35.07 (89.81 kg, 160.02 cm) as6 19:07 Pain Scale: Adult as6 Vitals: 20:22 Heart Tones 172. ll3 ED Course: 19:06 Patient arrived in ED. rg4 19:11 Triage completed. as6 19:11 Arm band placed on. as6 19:12 Hardeep Singh PA is PHCP. cp 19:12 Manuelito Haque MD is Attending Physician. cp 19:29 Strep Sent. ah1 19:29 Influenza Screen (a \\T\\ B) Sent. ah1 19:29 COVID-19 SARS RT PCR Sent. ah1 19:30 Patient has correct armband on for positive identification. Bed in low position. Call jj7 light in reach. Side rails up X 1. Adult w/ patient. 21:22 No provider procedures requiring assistance completed. Patient did not have IV access kd3 during this emergency room visit. Administered Medications: No medications were administered Medication: 19:30 VIS not applicable for this client. jj7 Outcome: 21:04 Discharge ordered by . cp 21:22 Discharged to home ambulatory. kd3 21:22 Condition: stable 21:22 Discharge instructions given to patient, Instructed on discharge instructions, follow up and referral plans. Demonstrated understanding of instructions, follow-up care. 21:22 Patient left the ED. kd3 Signatures: Hardeep Singh PA PA cp Garcia, Rubi rg4 Shane Bassett RN RN as6 Jacquie Ricardo RN RN ll3 Vivi Villalobos RN RN kd3 Maureen Degroot RN RN jj7 Carina [facility]
--- NOTE | 2022-10-01 21:05 | EDPHYS ---
Physician Documentation [facility] Name: Natali Velasco Age: 27 yrs Sex: Female : 1995 Arrival Date: 10/01/2022 Time: 19:06 Bed 5 Private MD: ED Physician Manuelito Haque HPI: 10/01 19:30 This 27 yrs old Female presents to ER via Ambulatory with complaints of Flu Symptoms. cp 19:30 The patient or guardian reports cough, that is intermittent, flu symptoms, body aches, cp sore throat. 19:30 Onset: The symptoms/episode began/occurred yesterday. Associated signs and symptoms: cp Pertinent positives: sinus pressure, sinus congestion, Pertinent negatives: diarrhea, fever, vomiting. 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 - Social history:: Smoking status: Reported history of juuling and/or vaping. ROS: 19:35 Constitutional: Positive for body aches, Negative for fever, poor PO intake. cp 19:35 Eyes: Negative for injury, pain, redness, and discharge. cp 19:35 ENT: Positive for sinus congestion, sinus pain, sore throat, Negative for drainage from ear(s), ear pain, difficulty swallowing, difficulty handling secretions. 19:35 Cardiovascular: Negative for chest pain. 19:35 Respiratory: Positive for cough, Negative for shortness of breath, wheezing. 19:35 Abdomen/GI: Negative for abdominal pain, vomiting, diarrhea, constipation. 19:35 : Negative for vaginal bleeding. 19:35 Neuro: Negative for altered mental status, weakness. 19:35 All other systems are negative. Exam: 19:40 Constitutional: The patient appears in no acute distress, alert, awake, non-toxic, well cp developed, well nourished. 19:40 Head/Face: Normocephalic, atraumatic. cp 19:40 Eyes: Periorbital structures: appear normal, Conjunctiva: normal, no exudate, no injection, Sclera: no appreciated abnormality, Lids and lashes: appear normal, bilaterally. 19:40 ENT: External ear(s): are unremarkable, Nose: is normal, Mouth: is normal, Posterior pharynx: Airway: no evidence of obstruction, patent, Tonsils: with erythema, no enlargement, no exudate, erythema, is not appreciated. 19:40 Neck: ROM/movement: is normal, is supple, without pain, no range of motions limitations, no meningismus, no nuchal rigidity. 19:40 Chest/axilla: Inspection: normal, Palpation: is normal, no crepitus, no tenderness. 19:40 Cardiovascular: Rate: tachycardic, Rhythm: regular. 19:40 Respiratory: the patient does not display signs of respiratory distress, Respirations: normal, no use of accessory muscles, no retractions, labored breathing, is not present, Breath sounds: decreased breath sounds, are not appreciated, stridor, is not appreciated, + upper airway congestion. wheezing: is not appreciated. 19:40 Abdomen/GI: Inspection: gravid appearance, is noted, Palpation: abdomen is soft and non-tender, in all quadrants. 19:40 Skin: cellulitis, is not appreciated, no rash present. Vital Signs: 19:07 BP 116 / 89; Pulse 131; Resp 18 S; Temp 98.3(O); Pulse Ox 96% on R/A; Weight 89.81 kg as6 (R); Height 5 ft. 3 in. (R); Pain 0/10; 20:25 BP 107 / 75; Pulse 112; Resp 19; Pulse Ox 98% ; ll3 21:22 BP 113 / 75; Pulse 82; Resp 19; Pulse Ox 99% on R/A; kd3 19:07 Body Mass Index 35.07 (89.81 kg, 160.02 cm) as6 19:07 Pain Scale: Adult as6 MDM: 19:22 Patient medically screened. cp 19:30 Differential diagnosis: bronchitis, flu, URI, strep throat. cp 21:04 Data reviewed: vital signs, nurses notes, lab test result(s). cp 21:04 Counseling: I had a detailed discussion with the patient and/or guardian regarding: the cp historical points, exam findings, and any diagnostic results supporting the discharge/admit diagnosis, lab results, to return to the emergency department if symptoms worsen or persist or if there are any questions or concerns that arise at home. 10/01 19:15 Order name: COVID-19 SARS RT PCR as6 10/01 19:15 Order name: Influenza Screen (a \T\ B) as6 10/01 19:15 Order name: Strep as6 10/01 19:52 Interpretation: Reviewed. cp 10/01 19:53 Order name: Throat Culture EDGA 10/01 19:52 Order name: FHT's; Complete Time: 20:22 cp Administered Medications: No medications were administered Disposition Summary: 10/01/22 21:04 Discharge Ordered Location: Home cp Problem: new cp Symptoms: have improved cp Condition: Stable cp Diagnosis - Acute sinusitis, unspecified cp - Cough cp Followup: cp - With: Private Physician - When: 2 - 3 days - Reason: Recheck today's complaints Discharge Instructions: - Discharge Summary Sheet cp - Sinusitis, Adult cp - Cough, Adult cp Forms: - Medication Reconciliation Form cp - Thank You Letter cp - Antibiotic Education cp - Prescription Opioid Use cp Addendum: 10/03/2022 20:01 Co-signature as Attending Physician, Manuelito Haque MD I reviewed the patient's care r n provided by the Advanced Practice Provider and agree with the diagnosis and treatment plan. Signatures: Dispatcher [employer] Manuelito Billy MD MD rn Page, Corey, PA PA cp Shane Bassett, JUSTUS RN as6
[2022-10-01 21:27] VITALS: TEMP 98.3
[2022-10-01 21:29] VITALS: BP 113/75; O2SAT 99
== END 2022-10-01 21:22 | disposition home or self-care (01) ==
LOC: ER 19:06
DX: O99.513 Diseases of the respiratory system complicating pregnancy, third trimester (principal); J01.90 Acute sinusitis, unspecified; Z20.822 Contact with and (suspected) exposure to COVID-19; Z3A.35 35 weeks gestation of pregnancy
CPT/HCPCS: 87070; 87081; 87804 ×2; 99283; U0003